=== PATIENT | female | born 1990 | race African-American/Black ===

== ENCOUNTER 2016-12-03 14:19 | Emergency (ER) | payer SELFPAY ==
[2016-12-03 15:03] VITALS: BP 132/68
--- NOTE | 2016-12-03 15:08 | ER Document Report ---
ED Medical Screen (RME) - General Stated Complaint: FALL HEAD PAIN Notes: 26 yo female c/o syncopal episode in shower today. hit head on water faucet. + headache. no n/v. no scalp hematoma. + hx/o crohn's. no recent flares. eating and drinking normally. + previous syncopal episodes TRAVEL OUTSIDE OF THE [place] IN LAST 30 DAYS: No - Related Data Allergies/Adverse Reactions: morphine [Morphine] Allergy (Mild, Verified 12/03/16 15:05) Hives Past Medical History Renal/ Medical History: Reports: Hx Ovarian Cysts GI Medical History: Reports: Hx Crohn's Disease, Hx Colonoscopy, Hx Endoscopy Past Surgical History: Reports: Hx Abdominal Surgery - Peritoneal abscess and fistula removed JACKIE chain inserted and removed, Hx Gynecologic Surgery - pelvic abscesses x2 - Immunizations Hx Diphtheria, Pertussis, Tetanus Vaccination: No Physical Exam - Vital signs Vitals: Temp Pulse Resp BP Pulse Ox 97.7 F 91 18 132/68 H 99 12/03/16 15:01 12/03/16 15:01 12/03/16 15:01 12/03/16 15:01 12/03/16 15:01 Course - Vital Signs Vital signs: Temp Pulse Resp BP Pulse Ox 97.7 F 91 18 132/68 H 99 12/03/16 15:01 12/03/16 15:01 12/03/16 15:01 12/03/16 15:01 12/03/16 15:01
[2016-12-03 15:45] LABS: ABSOLUTE LYMPHOCYTES (AUTO) 1.3 10^3/uL (0.5-4.7); ABSOLUTE MONOCYTES (AUTO) 0.4 10^3/uL (0.1-1.4); ABSOLUTE NEUT (AUTO) 3.7 10^3/uL (1.7-8.2); BASOPHILS % (AUTO) 0.1 % (0-2); EOSINOPHILS % (AUTO) 0.7 % (0-6); HEMATOCRIT 29.6 % (36.0-47.0); HEMOGLOBIN 9.2 g/dL (12.0-15.5); LYMPHOCYTES % (AUTO) 24.3 % (13-45); MEAN CORPUSCULAR HEMOGLOBIN 18.5 pg (27.0-33.4); MEAN CORPUSCULAR VOLUME 60 fl (80-97); MONOCYTES % (AUTO) 7.1 % (3-13); RED BLOOD COUNT 4.96 10^6/uL (3.72-5.28); RED CELL DISTRIBUTION WIDTH 19.8 % (11.5-14.0); SEGMENTED NEUTROPHILS % (AUTO) 67.8 % (42-78); WHITE BLOOD COUNT 5.5 10^3/uL (4.0-10.5)
[2016-12-03 16:02] LABS: ALANINE AMINOTRANSFERASE 23 U/L (9-52); ALBUMIN 3.7 g/dL (3.5-5.0); ALKALINE PHOSPHATASE 73 U/L (38-126); ANION GAP 14 (5-19); ASPARTATE AMINO TRANSFERASE 13 U/L (14-36); BILIRUBIN,TOTAL 0.5 mg/dL (0.2-1.3); BLOOD UREA NITROGEN 9 mg/dL (7-20); CALCIUM 9.4 mg/dL (8.4-10.2); CARBON DIOXIDE 24 mmol/L (22-30); CHLORIDE 106 mmol/L (98-107); CREATININE RESULT 0.69 mg/dL (0.52-1.25); GLUCOSE 75 mg/dL (75-110); POTASSIUM 4.6 mmol/L (3.6-5.0); SODIUM 143.6 mmol/L (137-145); TOTAL PROTEIN 7.8 g/dL (6.3-8.2)
[2016-12-03 16:13] LABS: ANISOCYTOSIS 2+; HYPOCHROMASIA 1+; MICROCYTOSIS 3+
[2016-12-03 16:14] LABS: OVALOCYTES SLIGHT; POIKILOCYTOSIS 1+; SCHISTOCYTES SLIGHT; TARGET CELLS SLIGHT; TEAR DROP CELLS SLIGHT
== END 2016-12-03 17:15 | disposition left against medical advice (07) ==
LOC: ER 14:19
DX: R51 Headache (principal); W18.2XXA Fall in (into) shower or empty bathtub, initial encounter; R55 Syncope and collapse; Z88.5 Allergy status to narcotic agent
CPT/HCPCS: 36415; 80053; 84703; 85025; 99281

== ENCOUNTER → 2017-06-05 | Outpatient (CLI) | payer BC ==
--- NOTE | 2017-06-05 11:54 | RADIOLOGY REPORT (SQ) ---
EXAM DESCRIPTION: CT ABD/PELVIS WITH IV ORAL COMPLETED DATE/TIME: 06/05/2017 10:27 am REASON FOR STUDY: CROHN'S DISEASE K50.919 CROHN'S DISEASE, UNSPECIFIED, WITH UNSPECIFIED COMPL COMPARISON: 03/01/2015 TECHNIQUE: CT scan of the abdomen and pelvis performed using helical scanning technique with dynamic intravenous contrast injection. Oral contrast. Images reviewed with lung, soft tissue, and bone win dows. Reconstructed coronal and sagittal MPR images reviewed. Delayed images for evaluation of the ur inary system also acquired. All images stored on PACS. All CT scanners at this facility use dose modulation, iterative reconstruction, and/or weight based d osing when appropriate to reduce radiation dose to as low as reasonably achievable (ALARA). [facility]: Dose Right [facility]: CareDose [facility]: Dose Right [facility]: Teradose 4D [facility]: [employer] CONTRAST TYPE AND DOSE: contrast/concentration: Isovue 370.00 mg/ml; Total Contrast Delivered: 97.0 ml; Total Saline Delivered: 43.6 ml RENAL FUNCTION: None required. The patient is less than 50 years old. RADIATION DOSE: Up-to-date CT equipment and radiation dose reduction techniques were employed. CTDIv ol: 13.8 - 14.0 mGy. DLP: 1522 mGy-cm.. LIMITATIONS: None. FINDINGS: LOWER CHEST: No significant findings. No nodules or infiltrates. LIVER: Normal size. No masses. No dilated ducts. SPLEEN: Normal size. No focal lesions. PANCREAS: No masses. No significant calcifications. No adjacent inflammation or peripancreatic fluid collections. Pancreatic duct not dilated. GALLBLADDER: A single gallstone is seen. This is seen on image 29 series 2 and image 31 series 5. ADRENAL GLANDS: No significant masses or asymmetry. RIGHT KIDNEY AND URETER: No solid masses. No significant calcifications. No hydronephrosis or hyd roureter. LEFT KIDNEY AND URETER: No solid masses. No significant calcifications. No hydronephrosis or hydr oureter. AORTA AND VESSELS: No aneurysm. No dissection. Renal arteries, SMA, celiac without stenosis. RETROPERITONEUM: No retroperitoneal adenopathy, hemorrhage or masses. BOWEL AND PERITONEAL CAVITY: Multiple small mesenteric lymph nodes are present. A large amount of st ool is present in the colon. No mass is present in the colon or small bowel. There is no abnormal b owel wall thickening. APPENDIX: Not identified. PELVIS: The urinary bladder is incompletely filled but otherwise unremarkable. The uterus is normal for age. There is a 4 cm right adnexal cyst. ABDOMINAL WALL: No masses. No hernias. BONES: No significant or acute findings. OTHER: No other significant finding. IMPRESSION: 1. Cholelithiasis. 2. There are multiple small mesenteric nodes possibly suggesting mesenteric adenitis. 3. There is a 4 cm right adnexal cyst. TECHNICAL DOCUMENTATION: JOB ID: [id number] Quality ID # [id number]: Final reports with documentation of one or more dose reduction techniques (e.g., Au tomated exposure control, adjustment of the mA and/or kV according to patient size, use of iterative reconstruction technique) 2010 [employer]- All Rights Reserved
== END ==
LOC: RAD 09:33
PROVIDERS: ATTEND Surgery
DX: K50.919 Crohn's disease, unspecified, with unspecified complications (principal)
CPT/HCPCS: 74177

== ENCOUNTER 2018-04-24 14:06 | Inpatient (IN) | payer SELFPAY ==
[2018-04-24] MEDS ORDERED: ACETAMINOPHEN 325 MG TABLET PO ONE (14:27)
[2018-04-24] MEDS ORDERED: NORMAL SALINE 1000 ML 1,000 ML IV ONE ×2 (14:54→17:12)
--- NOTE | 2018-04-24 14:56 | ER Document Report ---
ED Medical Screen (RME) - General Chief Complaint: Abdominal Pain Stated Complaint: ABDOMINAL PAIN Time Seen by Provider: 04/24/18 14:52 Notes: 27-year-old female history of Crohn's. History of pilonidal cyst. States he has a draining open abscess in the region where she had a pilonidal cyst in the past. On immunosuppressive therapy. Fever today of 102. Feels horrible. Hurts all over. Heart racing. I have greeted and performed a rapid initial assessment of this patient. A comprehensive ED assessment and evaluation of the patient, analysis of test results and completion of the medical decision making process will be conducted by additional ED providers. TRAVEL OUTSIDE OF THE [place] IN LAST 30 DAYS: No - Related Data Allergies/Adverse Reactions: morphine [Morphine] Allergy (Mild, Verified 12/03/16 15:05) Hives Past Medical History - General Information source: Patient Renal/ Medical History: Reports: Hx Ovarian Cysts. Denies: Hx Peritoneal Dialysis GI Medical History: Reports: Hx Crohn's Disease, Hx Colonoscopy, Hx Endoscopy Past Surgical History: Reports: Hx Abdominal Surgery - Peritoneal abscess and fistula removed JACKIE chain inserted and removed, Hx Gynecologic Surgery - pelvic abscesses x2 - Immunizations Hx Diphtheria, Pertussis, Tetanus Vaccination: No Review of Systems - Review of Systems Constitutional: Fever. denies: Malaise, Weakness EENT: No symptoms reported Cardiovascular: Palpitations, Heart racing Respiratory: No symptoms reported Gastrointestinal: Abdominal pain, Other - Clinical cyst, Female Genitourinary: No symptoms reported Musculoskeletal: No symptoms reported Skin: See HPI, Other - Pilonidal cyst Hematologic/Lymphatic: No symptoms reported Physical Exam - Vital signs Vitals: Temp Pulse Resp BP Pulse Ox 102.5 F H 132 H 16 127/65 H 100 04/24/18 14:24 04/24/18 14:24 04/24/18 14:24 04/24/18 14:24 04/24/18 14:24 Interpretation: Tachycardic, Febrile - Notes Notes: Uncomfortable appearing Course - Vital Signs Vital signs: Temp Pulse Resp BP Pulse Ox 102.5 F H 132 H 16 127/65 H 100 04/24/18 14:24 04/24/18 14:24 04/24/18 14:24 04/24/18 14:24 04/24/18 14:24 Doctor's Discharge - Discharge Referrals: JESSICA PILLAI MD [Primary Care Provider] - Follow up as needed
[2018-04-24] MEDS ORDERED: FENTANYL CITRATE INJ/PF 100 MCG/2 ML AMPUL IV ONE ×2 (16:40→18:06)
[2018-04-24 17:10] LABS: INTERNATIONAL RATION (INR) 1.24; PROTHROMBIN TIME 16.2 SEC (11.4-15.4)
--- NOTE | 2018-04-24 17:18 | ER Document Report ---
ED General - General Chief Complaint: Abdominal Pain Stated Complaint: ABDOMINAL PAIN Time Seen by Provider: 04/24/18 14:52 Mode of Arrival: Ambulatory Information source: Patient Notes: Patient presents complaining of fever that started yesterday with nausea and a chronic buttock abscess that is been draining. Patient has a history of Crohn' s and history of multiple pelvic abscesses as well as peritoneal abscess with fistula. Mother states that patient's abscess has intermittently been draining off and on for years. Patient does complain of nausea but denies any vomiting. Patient denies any abdominal tenderness. Patient does take stelara to treat her Crohn's. TRAVEL OUTSIDE OF THE [place] IN LAST 30 DAYS: No - HPI Onset: Yesterday Onset/Duration: Gradual Quality of pain: Sharp Pain Level: 5 Associated symptoms: Chills, Fever, Nausea. denies: Chest pain, Nonproductive cough, Productive cough, Diarrhea, Vomiting Exacerbated by: Sitting, Movement Relieved by: Denies Similar symptoms previously: Yes Recently seen / treated by doctor: No - Related Data Allergies/Adverse Reactions: morphine [Morphine] Allergy (Mild, Verified 12/03/16 15:05) Hives pineapple Adverse Reaction (Verified 04/24/18 23:20) Past Medical History - General Information source: Patient - Social History Smoking Status: Never Smoker Chew tobacco use (# tins/day): No Frequency of alcohol use: None Drug Abuse: None Lives with: Family Family History: Arthritis, CAD, DM, Hyperlipidemia, Hypertension, Thyroid Disfunction Patient has suicidal ideation: No Patient has homicidal ideation: No Renal/ Medical History: Reports: Hx Ovarian Cysts. Denies: Hx Peritoneal Dialysis GI Medical History: Reports: Hx Crohn's Disease, Hx Colonoscopy, Hx Endoscopy Past Surgical History: Reports: Hx Abdominal Surgery - Peritoneal abscess and fistula removed JACKIE chain inserted and removed, Hx Gynecologic Surgery - pelvic abscesses x2 - Immunizations Hx Diphtheria, Pertussis, Tetanus Vaccination: No Review of Systems - Review of Systems Constitutional: Chills, Fever EENT: No symptoms reported Cardiovascular: No symptoms reported. denies: Chest pain Respiratory: No symptoms reported. denies: Cough, Short of breath Gastrointestinal: Diarrhea - Chronic, Nausea. denies: Abdominal pain, Vomiting Genitourinary: No symptoms reported. denies: Dysuria, Flank pain Female Genitourinary: No symptoms reported Musculoskeletal: No symptoms reported. denies: Back pain Skin: Other - Chronic draining abscess to left buttock Hematologic/Lymphatic: No symptoms reported Neurological/Psychological: No symptoms reported Physical Exam - Vital signs Vitals: Temp Pulse Resp BP Pulse Ox 102.5 F H 132 H 16 127/65 H 100 04/24/18 14:24 04/24/18 14:24 04/24/18 14:24 04/24/18 14:24 04/24/18 14:24 - General General appearance: Alert In distress: Mild - HEENT Head: Normocephalic Eyes: Normal Conjunctiva: Normal Ears: Normal External canal: Normal Nasal: Normal Mouth/Lips: Normal Mucous membranes: Dry Pharynx: Erythema. No: Exudate, Peritonsillar abscess, Tonsillar hypertrophy, Potential airway comprom. Neck: Normal, Supple. No: Lymphadenopathy - Respiratory Respiratory status: No respiratory distress Chest status: Nontender Breath sounds: Normal. No: Rales, Rhonchi, Stridor, Wheezing Chest palpation: Normal - Cardiovascular Rhythm: Tachycardia Heart sounds: S1 appreciated, S2 appreciated Murmur: No - Abdominal Inspection: Obese Distension: No distension Bowel sounds: Normal Tenderness: Nontender Organomegaly: No organomegaly - Back Back: Normal, Nontender. No: CVA tenderness - Extremities General upper extremity: Normal inspection, Normal strength General lower extremity: Normal inspection, Normal strength - Neurological Neuro grossly intact: Yes Ann Coma Scale Eye Opening: Spontaneous Ann Coma Scale Verbal: Oriented Ann Coma Scale Motor: Obeys Commands Ann Coma Scale Total: 15 - Psychological Associated symptoms: Normal affect, Normal mood - Skin Skin Temperature: Warm Skin Moisture: Dry Skin Color: Flushed Skin irregularity: Abscess - Draining abscess to left buttock, no surrounding erythema. Tenderness does extend to left perirectal area Course - Re-evaluation Re-evalutation: 04/24/18 17:[address] Lacey who agrees to evaluate patient 04/24/18 17:51 Dr Lacey evaluated patient, does not feel that patient has a surgical problem at this time. Recommends CT imaging and admission to hospitalist services. Call placed jig operator to contact patient's primary doctor, Dr. Biggs. 04/24/18 18:05 04/24/18 19:[address] Turpin regarding patient presentation. Recommends obtaining CT scan report first and then calling him with results. States that he will admit patient, but prefers to be called back once the scan report has resulted. 04/24/18 19:38 Bedside report and handout given to Debra Latham CONTRACTING ANALYST - Vital Signs Vital signs: Temp Pulse Resp BP Pulse Ox 98.6 F 110 H 18 108/50 L 100 04/25/18 07:59 04/25/18 07:59 04/25/18 07:59 04/25/18 07:59 04/25/18 07:59 - Laboratory Result Diagrams: 04/25/18 04:56 04/25/18 04:56 Laboratory results interpreted by me: 04/24/18 04/24/18 04/24/18 16:40 16:40 16:40 WBC Hgb MCV MCH RDW Plt Count Seg Neuts % (Manual) Lymphocytes % (Manual) Abs Neuts (Manual) PT 16.2 H VBG pCO2 VBG HCO3 Potassium 3.5 L Carbon Dioxide 21 L Total Bilirubin 1.4 H Direct Bilirubin 0.7 H Urine Urobilinogen 2.0 H Ur Leukocyte Esterase TRACE H 04/24/18 04/24/18 18:24 20:00 WBC 13.2 H Hgb 11.7 L MCV 74 L MCH 24.0 L RDW 16.6 H Plt Count 133 L Seg Neuts % (Manual) 88 H Lymphocytes % (Manual) 5 L Abs Neuts (Manual) 12.1 H PT VBG pCO2 28.6 L VBG HCO3 18.1 L Potassium Carbon Dioxide Total Bilirubin Direct Bilirubin Urine Urobilinogen Ur Leukocyte Esterase Discharge - Discharge Clinical Impression: Left buttock abscess Fever Qualifiers: Fever type: unspecified Qualified Code(s): R50.9 - Fever, unspecified Crohns disease Qualifiers: Gastrointestinal tract location: unspecified location Digestive disease complication type: unspecified complication Qualified Code(s): K50.919 - Crohn' s disease, unspecified, with unspecified complications
[2018-04-24] MEDS ORDERED: AMPICILLIN SOD/SULBACTAM 3 GM VIAL IV ONE (17:28)
[2018-04-24 17:38] LABS: APPEARANCE,URINE TURBID; BILIRUBIN,URINE NEGATIVE (NEGATIVE); COLOR,URINE YELLOW; GLUCOSE, URINE NEGATIVE (NEGATIVE); KETONES,URINE NEGATIVE (NEGATIVE); LEUKOCYTE ESTERASE,URINE TRACE (NEGATIVE); NITRITE,URINE NEGATIVE (NEGATIVE); PROTEIN,URINE NEGATIVE (NEGATIVE); URINE SPECIFIC GRAVITY 1.023
[2018-04-24 17:46] LABS: ALANINE AMINOTRANSFERASE 20 U/L (9-52); ALBUMIN 3.5 g/dL (3.5-5.0); ALKALINE PHOSPHATASE 91 U/L (38-126); ANION GAP 11 (5-19); ASPARTATE AMINO TRANSFERASE 24 U/L (14-36); BILIRUBIN,DIRECT 0.7 mg/dL (0.0-0.4); BILIRUBIN,TOTAL 1.4 mg/dL (0.2-1.3); BLOOD UREA NITROGEN 11 mg/dL (7-20); CALCIUM 8.9 mg/dL (8.4-10.2); CARBON DIOXIDE 21 mmol/L (22-30); CHLORIDE 105 mmol/L (98-107); GLUCOSE 102 mg/dL (75-110); POTASSIUM 3.5 mmol/L (3.6-5.0); TOTAL PROTEIN 7.3 g/dL (6.3-8.2)
[2018-04-24] MEDS ORDERED: KETOROLAC TROMETHAMINE INJ/PF 30 MG/1 ML SDV IV ONE (18:23)
[2018-04-24 18:48] LABS: HEMOGLOBIN 11.7 g/dL (12.0-15.5); MEAN CORPUSCULAR HGB CONC 32.6 g/dL (32.0-36.0); MEAN CORPUSCULAR VOLUME 74 fl (80-97); PLATELET COUNT 133 10^3/uL (150-450); RED BLOOD COUNT 4.89 10^6/uL (3.72-5.28); RED CELL DISTRIBUTION WIDTH 16.6 % (11.5-14.0); WHITE BLOOD COUNT 13.2 10^3/uL (4.0-10.5)
[2018-04-24 19:16] LABS: ABSOLUTE LYMPHOCYTES# (MANUAL) 0.7 10^3/uL (0.5-4.7); ABSOLUTE MONOCYTES # (MANUAL) 0.4 10^3/uL (0.1-1.4); ABSOLUTE NEUTROPHILS# (MANUAL) 12.1 10^3/uL (1.7-8.2); BAND NEUTROPHILS % (MANUAL) 4 % (3-5); BASOPHILS % (MANUAL) 0 % (0-2); EOSINOPHILS % (MANUAL) 0 % (0-6); LYMPHOCYTES % (MANUAL) 5 % (13-45); MONOCYTES % (MANUAL) 3 % (3-13); SEGMENTED NEUTROPHILS % (MAN) 88 % (42-78); TOTAL CELLS COUNTED 100
[2018-04-24 19:17] LABS: PLATELET COMMENT DECREASED; RBC MORPHOLOGY COMMENT NORMO-CYTIC/CHROMIC
--- NOTE | 2018-04-24 20:19 | PDOC CONSULTATION ---
Consultation Consult Date: 04/24/18 Attending physician:: hilda Consult reason:: Left buttock abscess History of Present Illness Admission Date/PCP: JESSICA PILLAI MD Patient complains of: Left buttock abscess History of Present Illness: SRAVANTHI MENDEZ is a 27 year old female Presents emergency department with her mother complaining of left buttock abscess. Patient and mother are suboptimal historians. Apparently patient belongs to Dr. Biggs, has a long history of Crohn's disease since age of 14, and sees doll maker at [facility]. She was last seen a month and half ago. She is also seen Dr. Henriquez. She has had multiple colonoscopies in the past., Is scheduled to have another one in the very near at [facility]. 5 years ago she underwent left buttock abscess felt possibly to be fistula inano by Dr. Omar Moraes but this did not require additional surgery. According to the patient she states she has been having drainage ever since. There are no medical records for intervention on her buttocks since 2012. For several days she has had increased drainage from her left buttock cheek away from the initial operative side in 2012. She denies constipation abdominal pain nausea and vomiting. Patient has been on immunomodulators for some time; she is now on steroids. She is not on pain medication. She has had some skin issues particularly involving her abdominal wall since diagnosed with Crohn's disease. She is now in the emergency department with tachycardia and hypertension. There is left buttock drainage. She has a moderate leukocytosis. Surgery was consulted. Past Medical History GI Medical History: Reports: Crohn's Disease Social History Lives with: Family Smoking Status: Never Smoker Family History Family History: None - Remote history of Crohn's disease in a distant family member, Arthritis, CAD, DM, Hyperlipidemia, Hypertension, Thyroid Disfunction Parental Family History Reviewed: Yes Children Family History Reviewed: Yes Sibling(s) Family History Reviewed.: Yes Medication/Allergy Home Medications: Hydrocodone/Acetaminophen [Hydrocodone-Apap Solution] 7.5 ml PO Q6 PRN #120 ml 05/28/16 Prednisolone [Prelone 15mg/5ml] See Protocol PO ASDIR #55 ml 08/30/16 Allergies/Adverse Reactions: morphine [Morphine] Allergy (Mild, Verified 12/03/16 15:05) Hives Review of Systems Constitutional: PRESENT: as per HPI Eyes: ABSENT: visual disturbances Ears: ABSENT: hearing changes Cardiovascular: ABSENT: chest pain, dyspnea on exertion, edema, orthropnea, palpitations Gastrointestinal: PRESENT: as per HPI Physical Exam Vital Signs: Temp Pulse Resp BP Pulse Ox 101.2 F H 132 H 23 H 116/102 H 99 04/24/18 18:34 04/24/18 14:24 04/24/18 19:00 04/24/18 18:48 04/24/18 19:00 Intake & Output 04/23/18 04/24/18 04/25/18 06:59 06:59 06:59 Weight 118.4 kg General appearance: PRESENT: mild distress, other - Difficult to communicate with, multiple; most of the history provided by Head exam: PRESENT: normocephalic Eye exam: PRESENT: EOMI Neck exam: PRESENT: full ROM Respiratory exam: PRESENT: clear to auscultation da Cardiovascular exam: PRESENT: RRR Pulses: PRESENT: normal carotid pulses, normal radial pulses GI/Abdominal exam: PRESENT: other - Abdominal wall with scar; skin overlying the panniculus somewhat erythematous, very dry. Rectal exam: PRESENT: other - Fissure with heaped up granulation tissue, very tender. I did not formally digitalize the anal canal. There is a lot of stool in the perianal region Right buttock approximately 10 cm away from the anal verge is spontaneously draining abscess. Neurological exam: PRESENT: other Psychiatric exam: PRESENT: other - Difficult to understand. Results Laboratory Results: 04/24/18 18:24 04/24/18 16:40 04/24/18 04/24/18 04/24/18 16:40 16:40 18:24 WBC 13.2 H RBC 4.89 Hgb 11.7 L Hct 36.0 MCV 74 L MCH 24.0 L MCHC 32.6 RDW 16.6 H Plt Count 133 L Seg Neutrophils % Not Reportable Lymphocytes % Not Reportable Monocytes % Not Reportable Eosinophils % Not Reportable Basophils % Not Reportable Absolute Neutrophils Not Reportable Absolute Lymphocytes Not Reportable Absolute Monocytes Not Reportable Absolute Eosinophils Not Reportable Absolute Basophils Not Reportable Sodium 137.0 Potassium 3.5 L Chloride 105 Carbon Dioxide 21 L Anion Gap 11 BUN 11 Creatinine 0.87 Est GFR ( Amer) > 60 Est GFR (Non-Af Amer) > 60 Glucose 102 Calcium 8.9 Total Bilirubin 1.4 H AST 24 ALT 20 Alkaline Phosphatase 91 Total Protein 7.3 Albumin 3.5 Urine Color YELLOW Urine Appearance TURBID Urine pH 5.0 Ur Specific [place] 1.023 Urine Protein NEGATIVE Urine Glucose (UA) NEGATIVE Urine Ketones NEGATIVE Urine Blood NEGATIVE Urine Nitrite NEGATIVE Ur Leukocyte Esterase TRACE H Urine WBC (Auto) 5 Urine RBC (Auto) 1 Assessment & Plan - Diagnosis (1) Left buttock abscess Is this a current diagnosis for this admission?: Yes Plan: Impression: The patient has a subacute left buttock abscess. Does not appear very impressive on exam; although my assessment is limited due to patient's low pain threshold. 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 Again this is a chronic problem. Rectal exam not performed due to patient's intolerance to discomfort. Recommendations: 1. Patient's septic picture appears to be out of proportion to physical findings with regards to the left buttock, however the buttock abscess may need to be opened further. I have suggested we obtain a CT scan of the abdomen pelvis with IV and oral contrast to further define any further pathology. 2. Surgery will serve in a reimbursement consultant capacity; suggested to the emergency department the patient be admitted to the hospitalist service. (2) Anal fissure Is this a current diagnosis for this admission?: Yes (3) Obesity Qualifiers: Obesity type: due to excess calories (4) Crohns disease Qualifiers: Gastrointestinal tract location: unspecified location Digestive disease complication type: unspecified complication Qualified Code(s): K50.919 - Crohn 's disease, unspecified, with unspecified complications Is this a current diagnosis for this admission?: Yes (5) Fever Qualifiers: Fever type: unspecified Qualified Code(s): R50.9 - Fever, unspecified Is this a current diagnosis for this admission?: Yes - Time Time Spent: 30 to 50 Minutes Smoking Cessation Education: over 10 minutes Medications reviewed and adjusted accordingly: Yes Anticipated discharge: Home - Inpatient Certification Based on my medical assessment, after consideration of the patient's comorbidities, presenting symptoms, or acuity I expect that the services needed warrant INPATIENT care.: Yes I certify that my determination is in accordance with my understanding of Medicare's requirements for reasonable and necessary INPATIENT services [42 CFR 412.3e].: Yes Medical Necessity: Need For IV Fluids, Need for Pain Control, Need for IV Antibiotics, Need for Surgery
[2018-04-24 20:25] LABS: VENOUS BLOOD HCO3 18.1 mmol/L (20-32); VENOUS BLOOD PCO2 28.6 mmHg (35-63); VENOUS BLOOD PH 7.42 (7.30-7.42)
[2018-04-24] MEDS ORDERED: PROMETHAZINE HCL 25 MG TABLET PO PRN (21:00)
[2018-04-24] MEDS ORDERED: ZOLPIDEM TARTRATE 5 MG TABLET PO PRN (21:00)
[2018-04-24] MEDS ORDERED: ACETAMINOPHEN 325 MG TABLET PO PRN (21:00)
[2018-04-24] MEDS ORDERED: ONDANSETRON HCL INJ/PF 4 MG/2 ML SDV IV PRN (21:00)
[2018-04-24] MEDS ORDERED: METRONIDAZOLE 500 MG/NS RTU 100 ML IV ONE (21:15)
--- NOTE | 2018-04-24 21:18 | PDOC H&P ---
History of Present Illness Admission Date/PCP: JESSICA PILLAI MD History of Present Illness: SRAVANTHI MENDEZ is a 27 year old unfortunate black female patient who has been suffering from Crohn's disease since age 14 presented with chief complaint of fever and left buttock abscess. Patient has had this similar symptoms in the past for which admitted to this hospital where she had incision and drainage and extensive debridement. This afternoon patient also seen and evaluated by Dr. Singh who will see her at a review consultant capacity and deferred admission to the hospitalist service. Patient has associated abdominal pain but she denied any nausea vomiting, or urinary complaints. At presentation patient has T-max of 101.2, tachycardia and mild leukocytosis of 13,000. Past Medical History GI Medical History: Reports: Crohn's Disease Past Surgical History Past Surgical History: Reports: Other - Abscess drainage and debridement Social History Lives with: Family Smoking Status: Never Smoker - Advance Directive Resuscitation Status: Full Code Family History Family History: None - Remote history of Crohn's disease in a distant family member, Arthritis, CAD, DM, Hyperlipidemia, Hypertension, Thyroid Disfunction Parental Family History Reviewed: Yes Children Family History Reviewed: Yes Sibling(s) Family History Reviewed.: Yes Medication/Allergy Home Medications: Hydrocodone/Acetaminophen [Hydrocodone-Apap Solution] 7.5 ml PO Q6 PRN #120 ml 05/28/16 Prednisolone [Prelone 15mg/5ml] See Protocol PO ASDIR #55 ml 08/30/16 Allergies/Adverse Reactions: morphine [Morphine] Allergy (Mild, Verified 12/03/16 15:05) Hives Review of Systems Constitutional: PRESENT: as per HPI Ears: PRESENT: as per HPI Cardiovascular: PRESENT: as per HPI Respiratory: PRESENT: as per HPI Gastrointestinal: PRESENT: as per HPI Neurological: PRESENT: as per HPI Physical Exam Vital Signs: Temp Pulse Resp BP Pulse Ox 101.2 F H 132 H 23 H 116/102 H 99 04/24/18 18:34 04/24/18 14:24 04/24/18 19:00 04/24/18 18:48 04/24/18 19:00 Intake & Output 04/23/18 04/24/18 04/25/18 06:59 06:59 06:59 Weight 118.4 kg General appearance: PRESENT: mild distress Head exam: PRESENT: atraumatic, normocephalic Neck exam: ABSENT: carotid bruit, JVD, lymphadenopathy, thyromegaly Respiratory exam: PRESENT: clear to auscultation da. ABSENT: rales, rhonchi, wheezes Cardiovascular exam: PRESENT: tachycardia GI/Abdominal exam: PRESENT: normal bowel sounds, soft. ABSENT: distended, guarding, mass, organolmegaly, rebound, tenderness Extremities exam: PRESENT: other - Left buttock abscess Results Laboratory Results: 04/24/18 18:24 04/24/18 16:40 04/24/18 04/24/18 04/24/18 16:40 16:40 18:24 WBC 13.2 H RBC 4.89 Hgb 11.7 L Hct 36.0 MCV 74 L MCH 24.0 L MCHC 32.6 RDW 16.6 H Plt Count 133 L Seg Neutrophils % Not Reportable Lymphocytes % Not Reportable Monocytes % Not Reportable Eosinophils % Not Reportable Basophils % Not Reportable Absolute Neutrophils Not Reportable Absolute Lymphocytes Not Reportable Absolute Monocytes Not Reportable Absolute Eosinophils Not Reportable Absolute Basophils Not Reportable VBG pH VBG pCO2 VBG HCO3 VBG Base Excess Sodium 137.0 Potassium 3.5 L Chloride 105 Carbon Dioxide 21 L Anion Gap 11 BUN 11 Creatinine 0.87 Est GFR ( Amer) > 60 Est GFR (Non-Af Amer) > 60 Glucose 102 Lactic Acid Calcium 8.9 Total Bilirubin 1.4 H AST 24 ALT 20 Alkaline Phosphatase 91 Total Protein 7.3 Albumin 3.5 Urine Color YELLOW Urine Appearance TURBID Urine pH 5.0 Ur Specific [place] 1.023 Urine Protein NEGATIVE Urine Glucose (UA) NEGATIVE Urine Ketones NEGATIVE Urine Blood NEGATIVE Urine Nitrite NEGATIVE Ur Leukocyte Esterase TRACE H Urine WBC (Auto) 5 Urine RBC (Auto) 1 04/24/18 04/24/18 20:00 20:00 WBC RBC Hgb Hct MCV MCH MCHC RDW Plt Count Seg Neutrophils % Lymphocytes % Monocytes % Eosinophils % Basophils % Absolute Neutrophils Absolute Lymphocytes Absolute Monocytes Absolute Eosinophils Absolute Basophils VBG pH 7.42 VBG pCO2 28.6 L VBG HCO3 18.1 L VBG Base Excess -5.0 Sodium Potassium Chloride Carbon Dioxide Anion Gap BUN Creatinine Est GFR ( Amer) Est GFR (Non-Af Amer) Glucose Lactic Acid 1.3 Calcium Total Bilirubin AST ALT Alkaline Phosphatase Total Protein Albumin Urine Color Urine Appearance Urine pH Ur Specific [place] Urine Protein Urine Glucose (UA) Urine Ketones Urine Blood Urine Nitrite Ur Leukocyte Esterase Urine WBC (Auto) Urine RBC (Auto) Assessment & Plan - Diagnosis (1) Sepsis Qualifiers: Sepsis type: sepsis due to unspecified organism Qualified Code(s): A41.9 - Sepsis, unspecified organism Is this a current diagnosis for this admission?: Yes Plan: Patient has been empirically started on Flagyl, Levaquin. We will adjust her antibiotics based on her clinical response and culture results. (2) Crohns disease Qualifiers: Gastrointestinal tract location: unspecified location Digestive disease complication type: unspecified complication Qualified Code(s): K50.919 - Crohn 's disease, unspecified, with unspecified complications Is this a current diagnosis for this admission?: Yes Plan: Per her primary insurance administrative assistant. (3) Left buttock abscess Is this a current diagnosis for this admission?: Yes Plan: Dr. Singh consulted for further evaluation and management. - Inpatient Certification Medical Necessity: Need Close Monitoring Due to Risk of Patient Decompensation, Need for IV Antibiotics
[2018-04-24] MEDS: METHYLPREDNISOLONE INJ 40 MG/1 ML SDV IV SCH (21:59)
[2018-04-24] MEDS ORDERED: LEVOFLOXACIN 750 MG/D5W RTU 750 MG/150 ML RTUPB IV ONE (22:00)
--- NOTE | 2018-04-24 22:17 | RADIOLOGY REPORT (SQ) ---
EXAM DESCRIPTION: CT ABD/PELVIS WITH IV ORAL COMPLETED DATE/TIME: 04/24/2018 9:31 pm REASON FOR STUDY: fever, buttock abscess, hx crohns COMPARISON: 06/05/2017 TECHNIQUE: CT scan of the abdomen and pelvis performed using helical scanning technique with dynamic intravenous contrast injection. No oral contrast. Images reviewed with lung, soft tissue, and bone windows. Reconstructed coronal and sagittal MPR images reviewed. Delayed images for evaluation of the urinary system also acquired. All images stored on PACS. All CT scanners at this facility use dose modulation, iterative reconstruction, and/or weight based d osing when appropriate to reduce radiation dose to as low as reasonably achievable (ALARA). [facility]: Dose Right [facility]: CareDose [facility]: Dose Right [facility]: Teradose 4D [facility]: LearnZillion CONTRAST TYPE AND DOSE: contrast/concentration: Isovue 370.00 mg/ml; Total Contrast Delivered: 100.0 ml; Total Saline Delivered: 70.0 ml RENAL FUNCTION: BUN 11; creatinine 0.87 RADIATION DOSE: CT Rad equipment meets quality standard of care and radiation dose reduction techniq ues were employed. CTDIvol: 19.5 - 20.5 mGy. DLP: 2444 mGy-cm.. LIMITATIONS: None. FINDINGS: LOWER CHEST: No significant findings. No nodules or infiltrates. LIVER: Normal size. No masses. No dilated ducts. SPLEEN: Normal size. No focal lesions. PANCREAS: No masses. No significant calcifications. No adjacent inflammation or peripancreatic fluid collections. Pancreatic duct not dilated. GALLBLADDER: Gallstones. No inflammatory changes to suggest cholecystitis. ADRENAL GLANDS: No significant masses or asymmetry. RIGHT KIDNEY AND URETER: No solid masses. No significant calcifications. No hydronephrosis or hyd roureter. LEFT KIDNEY AND URETER: No solid masses. No significant calcifications. No hydronephrosis or hydr oureter. AORTA AND VESSELS: No aneurysm. No dissection. Renal arteries, SMA, celiac without stenosis. RETROPERITONEUM: No retroperitoneal adenopathy, hemorrhage or masses. BOWEL AND PERITONEAL CAVITY: Scattered small mesenteric lymph nodes similar to that seen on compariso n imaging. Prominent stool burden. No mass or inflammatory changes. APPENDIX: Not visualized. PELVIS: No mass. No free fluid. Normal bladder. ABDOMINAL WALL: No masses. No hernias. BONES: No significant or acute findings. OTHER: A serpiginous hypoattenuating fluid collection extends from the level of the coccyx, along the left perirectal fat and extra pelvic soft tissues, consistent with abscess. This may have fistulize d to the left gluteal skin. IMPRESSION: 1. Serpiginous left perirectal abscess extending from the level of the coccyx, along th e left perirectal fat to the left gluteal skin. 2. Cholelithiasis without evidence of cholecystitis. 3. Re- demonstration of scattered small mesenteric lymph nodes. TECHNICAL DOCUMENTATION: JOB ID: [id number] Quality ID # [id number]: Final reports with documentation of one or more dose reduction techniques (e.g., Au tomated exposure control, adjustment of the mA and/or kV according to patient size, use of iterative reconstruction technique) 2010 [email or web address]- All Rights Reserved Reading location - IP/workstation name: [email or web address]
--- NOTE | 2018-04-25 00:14 | EKG REPORT ---
SEVERITY:- BORDERLINE ECG - SINUS TACHYCARDIA BORDERLINE T ABNORMALITIES, DIFFUSE LEADS : Confirmed by: Todd Shi MD 25-Apr-2018 00:13:06
[2018-04-25] MEDS: METRONIDAZOLE 500 MG/NS RTU 100 ML IV SCH ×4 (05:23→23:49)
[2018-04-25] MEDS: METHYLPREDNISOLONE INJ 40 MG/1 ML SDV IV SCH ×3 (05:24→21:44)
[2018-04-25 05:42] LABS: HEMATOCRIT 31.4 % (36.0-47.0); HEMOGLOBIN 10.4 g/dL (12.0-15.5); MEAN CORPUSCULAR HGB CONC 33.2 g/dL (32.0-36.0); MEAN CORPUSCULAR VOLUME 72 fl (80-97); PLATELET COUNT 114 10^3/uL (150-450); RED BLOOD COUNT 4.33 10^6/uL (3.72-5.28); RED CELL DISTRIBUTION WIDTH 15.9 % (11.5-14.0)
[2018-04-25 06:00] LABS: ANION GAP 12 (5-19); BLOOD UREA NITROGEN 11 mg/dL (7-20); CALCIUM 8.2 mg/dL (8.4-10.2); CARBON DIOXIDE 20 mmol/L (22-30); CHLORIDE 108 mmol/L (98-107); GLUCOSE 131 mg/dL (75-110); POTASSIUM 3.8 mmol/L (3.6-5.0); SODIUM 140.2 mmol/L (137-145)
[2018-04-25 07:03] LABS: ABSOLUTE LYMPHOCYTES# (MANUAL) 0.3 10^3/uL (0.5-4.7); ABSOLUTE MONOCYTES # (MANUAL) 0.6 10^3/uL (0.1-1.4); ABSOLUTE NEUTROPHILS# (MANUAL) 13.2 10^3/uL (1.7-8.2); BASOPHILS % (MANUAL) 0 % (0-2); EOSINOPHILS % (MANUAL) 0 % (0-6); LYMPHOCYTES % (MANUAL) 2 % (13-45); MONOCYTES % (MANUAL) 4 % (3-13); SEGMENTED NEUTROPHILS % (MAN) 73 % (42-78); TOTAL CELLS COUNTED 100
[2018-04-25 07:05] LABS: ANISOCYTOSIS SLIGHT; HYPOCHROMASIA SLIGHT; OVALOCYTES SLIGHT; PLATELET COMMENT DECREASED
[2018-04-25 07:07] LABS: BAND NEUTROPHILS % (MANUAL) 21 % (3-5)
--- NOTE | 2018-04-25 09:47 | PDOC PROGRESS REPORT ---
Subjective Progress Note for:: 04/25/18 Subjective:: left gluteal drainage Reason For Visit: SEPSIS Physical Exam Vital Signs: Temp Pulse Resp BP Pulse Ox 98.6 F 110 H 18 108/50 L 100 04/25/18 07:59 04/25/18 07:59 04/25/18 07:59 04/25/18 07:59 04/25/18 07:59 Intake & Output 04/24/18 04/25/18 04/26/18 06:59 06:59 06:59 Intake Total 1020 Balance 1020 Weight 121 kg General appearance: PRESENT: no acute distress Rectal exam: PRESENT: deferred, other - no perianal cellulitis Skin exam: PRESENT: other - open draining abscess site left gluteus Results Laboratory Results: 04/25/18 04:56 04/25/18 04:56 04/25/18 04/25/18 04:56 04:56 WBC 14.0 H RBC 4.33 Hgb 10.4 L Hct 31.4 L MCV 72 L MCH 24.0 L MCHC 33.2 RDW 15.9 H Plt Count 114 L Seg Neutrophils % Not Reportable Lymphocytes % Not Reportable Monocytes % Not Reportable Eosinophils % Not Reportable Basophils % Not Reportable Absolute Neutrophils Not Reportable Absolute Lymphocytes Not Reportable Absolute Monocytes Not Reportable Absolute Eosinophils Not Reportable Absolute Basophils Not Reportable Sodium 140.2 Potassium 3.8 Chloride 108 H Carbon Dioxide 20 L Anion Gap 12 BUN 11 Creatinine 0.73 Est GFR ( Amer) > 60 Est GFR (Non-Af Amer) > 60 Glucose 131 H Calcium 8.2 L Impressions: Abdomen/Pelvis CT 04/24/18 00:00 IMPRESSION: 1. Serpiginous left perirectal abscess extending from the level of the coccyx, along the left perirectal fat to the left gluteal skin. 2. Cholelithiasis without evidence of cholecystitis. 3. Re- demonstration of scattered small mesenteric lymph nodes. Assessment & Plan - Plan Summary Plan Summary: A/ Chron's disease affecting the rectum CT scan demonstrating left gluteal deep cutaneous fistulous tract; no obvious connection with rectum is identified draining site left gluteus as per CT finding P/ continue IV abx Plan to discharge patient to home in the next 1-2 days once the left gluteal abscess cx results are back The patient fistulous tract and drainage should be addressed by her GI specialist as the rectum is involved by Crohn's disease Colonoscopy planned at [facility] @
[2018-04-25] MEDS: ENOXAPARIN SODIUM INJ 40 MG/0.4 ML DISP.SYRIN SUBCUT SCH (10:19)
[2018-04-25] MEDS: LEVOFLOXACIN 750 MG/D5W RTU 750 MG/150 ML RTUPB IV SCH (10:20)
--- NOTE | 2018-04-25 10:36 | PDOC PROGRESS REPORT ---
Subjective Progress Note for:: 04/25/18 Subjective:: Admitted overnight for abscess Reason For Visit: SEPSIS Physical Exam Vital Signs: Temp Pulse Resp BP Pulse Ox 98.6 F 110 H 18 108/50 L 100 04/25/18 07:59 04/25/18 07:59 04/25/18 07:59 04/25/18 07:59 04/25/18 07:59 Intake & Output 04/24/18 04/25/18 04/26/18 06:59 06:59 06:59 Intake Total 1020 Balance 1020 Weight 121 kg General appearance: PRESENT: no acute distress, well-developed, well-nourished Head exam: PRESENT: atraumatic, normocephalic Eye exam: PRESENT: conjunctiva pink, EOMI, PERRLA. ABSENT: scleral icterus Ear exam: PRESENT: normal external ear exam Mouth exam: PRESENT: moist, tongue midline Neck exam: ABSENT: carotid bruit, JVD, lymphadenopathy, thyromegaly Respiratory exam: PRESENT: clear to auscultation da. ABSENT: rales, rhonchi, wheezes Cardiovascular exam: PRESENT: RRR. ABSENT: diastolic murmur, rubs, systolic murmur Pulses: PRESENT: normal dorsalis pedis pul Vascular exam: PRESENT: normal capillary refill GI/Abdominal exam: PRESENT: normal bowel sounds, soft. ABSENT: distended, guarding, mass, organolmegaly, rebound, tenderness Rectal exam: PRESENT: deferred Extremities exam: PRESENT: full ROM. ABSENT: calf tenderness, clubbing, pedal edema Musculoskeletal exam: PRESENT: other - L buttock Neurological exam: PRESENT: alert, awake, oriented to person, oriented to place , oriented to time, oriented to situation, CN II-XII grossly intact. ABSENT: motor sensory deficit Psychiatric exam: PRESENT: appropriate affect, normal mood. ABSENT: homicidal ideation, suicidal ideation Skin exam: PRESENT: dry, intact, warm. ABSENT: cyanosis, rash Results Laboratory Results: 04/25/18 04:56 04/25/18 04:56 04/25/18 04/25/18 04:56 04:56 WBC 14.0 H RBC 4.33 Hgb 10.4 L Hct 31.4 L MCV 72 L MCH 24.0 L MCHC 33.2 RDW 15.9 H Plt Count 114 L Seg Neutrophils % Not Reportable Lymphocytes % Not Reportable Monocytes % Not Reportable Eosinophils % Not Reportable Basophils % Not Reportable Absolute Neutrophils Not Reportable Absolute Lymphocytes Not Reportable Absolute Monocytes Not Reportable Absolute Eosinophils Not Reportable Absolute Basophils Not Reportable Sodium 140.2 Potassium 3.8 Chloride 108 H Carbon Dioxide 20 L Anion Gap 12 BUN 11 Creatinine 0.73 Est GFR ( Amer) > 60 Est GFR (Non-Af Amer) > 60 Glucose 131 H Calcium 8.2 L Impressions: Abdomen/Pelvis CT 04/24/18 00:00 IMPRESSION: 1. Serpiginous left perirectal abscess extending from the level of the coccyx, along the left perirectal fat to the left gluteal skin. 2. Cholelithiasis without evidence of cholecystitis. 3. Re- demonstration of scattered small mesenteric lymph nodes. Assessment & Plan - Diagnosis (1) Sepsis Qualifiers: Sepsis type: sepsis due to unspecified organism Qualified Code(s): A41.9 - Sepsis, unspecified organism Is this a current diagnosis for this admission?: Yes Plan: Per sepsis criteria on admission. (2) Left buttock abscess Is this a current diagnosis for this admission?: Yes Plan: Seen by surgery, cont current antibiotics (3) Anal fissure Is this a current diagnosis for this admission?: Yes Plan: Secondary to Crohns (4) Crohns disease Qualifiers: Gastrointestinal tract location: unspecified location Digestive disease complication type: unspecified complication Qualified Code(s): K50.919 - Crohn 's disease, unspecified, with unspecified complications Is this a current diagnosis for this admission?: Yes (5) Obesity Qualifiers: Obesity type: due to excess calories Is this a current diagnosis for this admission?: Yes - Time Time Spent with patient: 15-24 minutes Medications reviewed and adjusted accordingly: Yes Anticipated discharge: Home Within: within 72 hours - Inpatient Certification Based on my medical assessment, after consideration of the patient's comorbidities, presenting symptoms, or acuity I expect that the services needed warrant INPATIENT care.: Yes Medical Necessity: Significant Comorbidiites Make Outpatient Treatment Too Risky , Need For IV Fluids, Need for IV Antibiotics
[2018-04-25] MEDS: OXYCODONE-ACETAMINOPHEN 5-325 MG TABLET PO PRN (14:38)
[2018-04-26] MEDS: METRONIDAZOLE 500 MG/NS RTU 100 ML IV SCH ×2 (05:45→14:27)
[2018-04-26] MEDS: METHYLPREDNISOLONE INJ 40 MG/1 ML SDV IV SCH ×3 (05:45→23:04)
[2018-04-26 06:05] LABS: HEMATOCRIT 30.5 % (36.0-47.0); MEAN CORPUSCULAR HEMOGLOBIN 23.7 pg (27.0-33.4); MEAN CORPUSCULAR HGB CONC 32.8 g/dL (32.0-36.0); MEAN CORPUSCULAR VOLUME 72 fl (80-97); PLATELET COUNT 103 10^3/uL (150-450); RED BLOOD COUNT 4.22 10^6/uL (3.72-5.28); RED CELL DISTRIBUTION WIDTH 16.3 % (11.5-14.0)
[2018-04-26 06:38] LABS: ABSOLUTE LYMPHOCYTES# (MANUAL) 0.4 10^3/uL (0.5-4.7); ABSOLUTE MONOCYTES # (MANUAL) 0.4 10^3/uL (0.1-1.4); ABSOLUTE NEUTROPHILS# (MANUAL) 11.3 10^3/uL (1.7-8.2); BAND NEUTROPHILS % (MANUAL) 5 % (3-5); BASOPHILS % (MANUAL) 0 % (0-2); EOSINOPHILS % (MANUAL) 0 % (0-6); LYMPHOCYTES % (MANUAL) 3 % (13-45); MONOCYTES % (MANUAL) 3 % (3-13); SEGMENTED NEUTROPHILS % (MAN) 89 % (42-78); TOTAL CELLS COUNTED 100
[2018-04-26 06:41] LABS: ANISOCYTOSIS 1+
[2018-04-26 06:42] LABS: HYPOCHROMASIA 1+; PLATELET COMMENT ADEQUATE
[2018-04-26 10:04] LABS: PATH REVIEW PATHOLOGIST REVIEWED
[2018-04-26] MEDS: LEVOFLOXACIN 750 MG/D5W RTU 750 MG/150 ML RTUPB IV SCH (10:22)
[2018-04-26] MEDS: ENOXAPARIN SODIUM INJ 40 MG/0.4 ML DISP.SYRIN SUBCUT SCH (10:22)
[2018-04-26] MEDS: FLUCONAZOLE 100 MG TABLET PO SCH (13:08)
--- NOTE | 2018-04-26 14:16 | PDOC PROGRESS REPORT ---
Subjective Progress Note for:: 04/26/18 Subjective:: Admitted for perirectal abscess secondary to Crohn's disease and currently on intravenous antibiotics. Patient also: Complained of vaginal discharge today. I have placed him Diflucan Reason For Visit: SEPSIS Physical Exam Vital Signs: Temp Pulse Resp BP Pulse Ox 98.6 F 92 19 118/63 99 04/26/18 11:52 04/26/18 11:52 04/26/18 11:52 04/26/18 11:52 04/26/18 11:52 Intake & Output 04/25/18 04/26/18 04/27/18 06:59 06:59 06:59 Intake Total 1020 2786 200 Balance 1020 2786 200 Weight 121 kg 121.5 kg General appearance: PRESENT: no acute distress, well-developed, well-nourished Head exam: PRESENT: atraumatic, normocephalic Eye exam: PRESENT: conjunctiva pink, EOMI, PERRLA. ABSENT: scleral icterus Ear exam: PRESENT: normal external ear exam Mouth exam: PRESENT: moist, tongue midline Neck exam: ABSENT: carotid bruit, JVD, lymphadenopathy, thyromegaly Respiratory exam: PRESENT: clear to auscultation da. ABSENT: rales, rhonchi, wheezes Cardiovascular exam: PRESENT: RRR. ABSENT: diastolic murmur, rubs, systolic murmur Pulses: PRESENT: normal dorsalis pedis pul Vascular exam: PRESENT: normal capillary refill GI/Abdominal exam: PRESENT: normal bowel sounds, soft. ABSENT: distended, guarding, mass, organolmegaly, rebound, tenderness Rectal exam: PRESENT: deferred Gentrourinary exam: PRESENT: other - whitish vaginal discharge Extremities exam: PRESENT: full ROM. ABSENT: calf tenderness, clubbing, pedal edema Musculoskeletal exam: PRESENT: other - R buttock drainage covered with dressing Neurological exam: PRESENT: alert, awake, oriented to person, oriented to place , oriented to time, oriented to situation, CN II-XII grossly intact. ABSENT: motor sensory deficit Psychiatric exam: PRESENT: appropriate affect, normal mood. ABSENT: homicidal ideation, suicidal ideation Skin exam: PRESENT: dry, intact, warm. ABSENT: cyanosis, rash Results Laboratory Results: 04/26/18 05:27 04/25/18 04:56 04/26/18 05:27 WBC 12.0 H RBC 4.22 Hgb 10.0 L Hct 30.5 L MCV 72 L MCH 23.7 L MCHC 32.8 RDW 16.3 H Plt Count 103 L Seg Neutrophils % Not Reportable Lymphocytes % Not Reportable Monocytes % Not Reportable Eosinophils % Not Reportable Basophils % Not Reportable Absolute Neutrophils Not Reportable Absolute Lymphocytes Not Reportable Absolute Monocytes Not Reportable Absolute Eosinophils Not Reportable Absolute Basophils Not Reportable Impressions: Abdomen/Pelvis CT 04/24/18 00:00 IMPRESSION: 1. Serpiginous left perirectal abscess extending from the level of the coccyx, along the left perirectal fat to the left gluteal skin. 2. Cholelithiasis without evidence of cholecystitis. 3. Re- demonstration of scattered small mesenteric lymph nodes. Assessment & Plan - Diagnosis (1) Sepsis Qualifiers: Sepsis type: sepsis due to unspecified organism Qualified Code(s): A41.9 - Sepsis, unspecified organism Is this a current diagnosis for this admission?: Yes Plan: This has resolved. (2) Left buttock abscess Is this a current diagnosis for this admission?: Yes Plan: Patient was seen by general surgery with the impression of the left perirectal abscess extending from the level of the coccyx along the left perirectal fat to the left gluteal skin. The recommendation is continue with IV antibiotics and for her to follow-up with the GI specialist at [facility] for further evaluation of the fistulous tract and drainage. She is currently growing group a beta strep as well as gram-negative rods and she is on Levaquin and Flagyl. I think it is reasonable to obtain an infectious disease consultation to help us manage this patient given her complicated infection. (3) Anal fissure Is this a current diagnosis for this admission?: Yes Plan: Secondary to Crohn's disease (4) Crohns disease Qualifiers: Gastrointestinal tract location: unspecified location Digestive disease complication type: unspecified complication Qualified Code(s): K50.919 - Crohn 's disease, unspecified, with unspecified complications Is this a current diagnosis for this admission?: Yes Plan: This is the underlying etiology for a perirectal abscess and fistulas. Patient apparently has a follow-up appointment with GI at [facility]. at this point she still requires IV antibiotics and she is now stable for discharge home. (5) Obesity Qualifiers: Obesity type: due to excess calories Is this a current diagnosis for this admission?: Yes Plan: Weight loss encouraged - Time Time Spent with patient: 15-24 minutes Medications reviewed and adjusted accordingly: Yes Anticipated discharge: Home Within: within 72 hours - Inpatient Certification Based on my medical assessment, after consideration of the patient's comorbidities, presenting symptoms, or acuity I expect that the services needed warrant INPATIENT care.: Yes I certify that my determination is in accordance with my understanding of Medicare's requirements for reasonable and necessary INPATIENT services [42 CFR 412.3e].: Yes Medical Necessity: Need for IV Antibiotics, Risk of Complication if Not Cared For in Hospital
--- NOTE | 2018-04-26 15:09 | Progress Note ---
Provider Note Provider Note: I discussed this case with Dr. Fredi Marrero, [facility] infectious disease and she recommends starting the patient on Unasyn IV which will cover the potential organisms that are currently growing including anaerobes. She also suggest that patient can be switched to Augmentin at discharge. I will DC the Flagyl and Levaquin and start on Unasyn as suggested.
--- NOTE | 2018-04-26 15:14 | Progress Note ---
Provider Note Provider Note: ID Consult Note Asked by Dr Chou to provide recommendations regarding choice of antibiotic therapy. Pt not seen or examined. Discussed case over the telephone and reviewed VS, imaging reports, labs and provider reports. Pt is a 27 year old woman with PMH notable for obesity and Crohn's disease. She is reported to have had a prior left buttock abscess around 5 years ago and suspected fistula in ano. Pt presented with complaint of several days of increased drainage from her left buttock away from the initial operative site. She had fever of 102. F on presentation and tachycardia. Her exam was limited due to pain, but she was found to have a fissure on rectal exam that was very tender and a spontaneously draining abscess approximately 10 cm away from the anal verge. Labs were notable for leukocytosis of around 13k. CT of the abdomen/pelvis with IV contrast on 04/24 showed a serpiginous L perirectal abscess extending from the level of the coccyx along the left perirectal fat to the left gluteal skin. Wound culture has been preliminarily reported as showing growth of 4+ Group A Strep and 1 colony of a Gram negative del. Blood cultures have shown on growth to date. Impression/Recommendations Perirectal abscess - in terms of antimicrobial therapy, IV Unasyn as an inpatient should be sufficient to address Group A Strep and also provide empiric enteric gram negative and anaerobic activity; when the patient is ready for discharge home, this could be changed to Augmetin 500/125 mg PO TID to complete the remainder of treatment. Based on further information from culture results, antibiotic therapy could be modified if needed. Generally, antibiotic duration is around 10-14 days Fredi Marrero MD, [facility] Infectious Diseases pager [phone]
[2018-04-26] MEDS: AMPICILLIN SODIUM/SULBACTAM NA 3 GM in NORMAL SALINE 100 ML IV SCH ×2 (17:30→23:10)
[2018-04-26] MEDS: OXYCODONE-ACETAMINOPHEN 5-325 MG TABLET PO PRN (23:04)
[2018-04-27] MEDS: AMPICILLIN SODIUM/SULBACTAM NA 3 GM in NORMAL SALINE 100 ML IV SCH ×3 (05:54→17:27)
[2018-04-27] MEDS: METHYLPREDNISOLONE INJ 40 MG/1 ML SDV IV SCH ×2 (05:54→14:21)
[2018-04-27 06:01] LABS: HEMATOCRIT 31.2 % (36.0-47.0); HEMOGLOBIN 10.4 g/dL (12.0-15.5); MEAN CORPUSCULAR HEMOGLOBIN 24.2 pg (27.0-33.4); MEAN CORPUSCULAR HGB CONC 33.5 g/dL (32.0-36.0); MEAN CORPUSCULAR VOLUME 72 fl (80-97); PLATELET COUNT 119 10^3/uL (150-450); RED BLOOD COUNT 4.31 10^6/uL (3.72-5.28); RED CELL DISTRIBUTION WIDTH 16.3 % (11.5-14.0); WHITE BLOOD COUNT 10.2 10^3/uL (4.0-10.5)
[2018-04-27 08:19] LABS: ABSOLUTE LYMPHOCYTES# (MANUAL) 0.8 10^3/uL (0.5-4.7); ABSOLUTE MONOCYTES # (MANUAL) 0.1 10^3/uL (0.1-1.4); ABSOLUTE NEUTROPHILS# (MANUAL) 9.3 10^3/uL (1.7-8.2); BASOPHILS % (MANUAL) 0 % (0-2); EOSINOPHILS % (MANUAL) 0 % (0-6); LYMPHOCYTES % (MANUAL) 4 % (13-45); MONOCYTES % (MANUAL) 1 % (3-13); SEGMENTED NEUTROPHILS % (MAN) 91 % (42-78); TOTAL CELLS COUNTED 100
[2018-04-27 08:20] LABS: ANISOCYTOSIS 1+; OVALOCYTES 1+; PLATELET COMMENT DECREASED; POIKILOCYTOSIS 1+; TEAR DROP CELLS 1+
[2018-04-27] MEDS: ENOXAPARIN SODIUM INJ 40 MG/0.4 ML DISP.SYRIN SUBCUT SCH (10:06)
[2018-04-27] MEDS: FLUCONAZOLE 100 MG TABLET PO SCH (14:21)
[2018-04-27 15:46] VITALS: BP 124/69
--- NOTE | 2018-04-27 17:36 | PDOC DISCHARGE SUMMARY ---
General - Admit/Disc Date/PCP Admission Date/Primary Care Provider: 04/24/18 21:11 Discharge Date: 04/27/18 - Discharge Diagnosis (1) Left buttock abscess Is this a current diagnosis for this admission?: Yes Summary: She had a left buttock perianal abscess associated with Crohn's disease had developed a fistula and was draining over the left gluteus. It grew out E. coli , and group A streptococcus was also recovered. Infectious disease was consulted and recommended treating with Augmentin 3 times a day for 10-14 days. She was seen by general surgery who recommended no further intervention at this time. She has follow-up with her head and neck surgeon at [facility] scheduled for the end of next week and at that time any further intervention on this particular problem can be made at that time once the infection is cleared. (2) Crohns disease Is this a current diagnosis for this admission?: Yes Summary: This is not acutely exacerbated during this hospitalization. She will continue on her usual maintenance medication and she gets every 8 weeks. (3) Morbid (severe) obesity due to excess calories Is this a current diagnosis for this admission?: Yes Summary: Lifestyle modifications were recommended. - Additional Information Resuscitation Status: Full Code Discharge Diet: Regular Discharge Activity: Activity As Tolerated, No tub bath Prescriptions: Amoxicillin/Potassium Clav [Augmentin 500-125 Tablet] 1 each PO Q8 #42 tablet Hydrocodone Bit/Homatrop Me-Br [Hydrocodone Compound Syrup] 5 ml PO Q6HP PRN # 120 ml PRN Reason: Cough Home Medications: Ustekinumab [Stelara] 90 mg [id number] 04/25/18 Amoxicillin/Potassium Clav [Augmentin 500-125 Tablet] 1 each PO Q8 #42 tablet Hydrocodone Bit/Homatrop Me-Br [Hydrocodone Compound Syrup] 5 ml PO Q6HP PRN # 120 ml 04/27/18 History of Present Illness Patient complains of: Left gluteal drainage and pain History of Present Illness: SRAVANTHI MENDEZ is a 27 year old female Hospital Course Hospital Course: She was placed on empiric antibiotics and general surgery was consulted. The made no further recommendations other than to continue antibiotics and have her follow-up with her head and neck surgeon as previously scheduled. Infectious disease was consulted and made antibiotic recommendations as noted above. Her labs were reassuring and she was discharged today in good condition. Physical Exam Vital Signs: Temp Pulse Resp BP Pulse Ox 97.9 F 71 19 124/69 97 04/27/18 15:21 04/27/18 15:21 04/27/18 15:21 04/27/18 15:21 04/27/18 15:21 Intake & Output 04/26/18 04/27/18 04/28/18 06:59 06:59 06:59 Intake Total 2786 1428 300 Balance 2786 1428 300 Weight 121.5 kg 121.8 kg General appearance: PRESENT: no acute distress, cooperative, morbidly obese Head exam: PRESENT: atraumatic, normocephalic Respiratory exam: PRESENT: clear to auscultation da, unlabored. ABSENT: accessory muscle use, chest wall tenderness, crackles, decreased breath sounds, prolonged expiratory phas, rales, rhonchi, wheezes Cardiovascular exam: PRESENT: RRR. ABSENT: diastolic murmur, gallop, rubs, systolic murmur Vascular exam: PRESENT: normal capillary refill GI/Abdominal exam: PRESENT: normal bowel sounds, soft. ABSENT: ascites, diminished bowel sounds, distended, guarding, rebound, tenderness Rectal exam: PRESENT: deferred Extremities exam: ABSENT: joint swelling, pedal edema Musculoskeletal exam: PRESENT: ambulatory, full ROM, normal inspection Neurological exam: PRESENT: alert, awake, oriented to person, oriented to place , oriented to time Results Laboratory Results: 04/27/18 05:00 04/25/18 04:56 04/27/18 05:00 WBC 10.2 RBC 4.31 Hgb 10.4 L Hct 31.2 L MCV 72 L MCH 24.2 L MCHC 33.5 RDW 16.3 H Plt Count 119 L Seg Neutrophils % Not Reportable Lymphocytes % Not Reportable Monocytes % Not Reportable Eosinophils % Not Reportable Basophils % Not Reportable Absolute Neutrophils Not Reportable Absolute Lymphocytes Not Reportable Absolute Monocytes Not Reportable Absolute Eosinophils Not Reportable Absolute Basophils Not Reportable 04/24/18 22:55 Buttocks - Abscess Gram Stain - Final 04/24/18 22:55 Buttocks - Abscess Wound Culture - Final Group A Beta Streptococcus Escherichia Coli Bacteroides Fragilis Group Impressions: Abdomen/Pelvis CT 04/24/18 00:00 IMPRESSION: 1. Serpiginous left perirectal abscess extending from the level of the coccyx, along the left perirectal fat to the left gluteal skin. 2. Cholelithiasis without evidence of cholecystitis. 3. Re- demonstration of scattered small mesenteric lymph nodes. Qualifiers - * PATIENT BEING DISCHARGED WITH ANY OF THE FOLLOWING DIAGNOSIS: No
== END 2018-04-27 19:13 | disposition home or self-care (01) | DRG 603 ==
LOC: ER 14:06 → EH 21:11 → 3W 22:37
PROVIDERS: ADMIT Internal Medicine; ATTEND Internal Medicine
DX: L02.31 Cutaneous abscess of buttock (principal); K50.914 Crohn's disease, unspecified, with abscess; Z68.41 Body mass index [BMI] 40.0-44.9, adult; K80.20 Calculus of gallbladder without cholecystitis without obstruction; B96.6 Bacteroides fragilis [B. fragilis] as the cause of diseases classified elsewhere; B96.20 Unspecified Escherichia coli [E. coli] as the cause of diseases classified elsewhere; B95.0 Streptococcus, group A, as the cause of diseases classified elsewhere; E66.01 Morbid (severe) obesity due to excess calories; Z79.899 Other long term (current) drug therapy; Z88.6 Allergy status to analgesic agent; Z91.018 Allergy to other foods; Z82.61 Family history of arthritis; Z83.3 Family history of diabetes mellitus; Z82.49 Family history of ischemic heart disease and other diseases of the circulatory system; Z83.49 Family history of other endocrine, nutritional and metabolic diseases
CPT/HCPCS: 36415; 74177; 80048; 80053; 81001; 81025; 82803; 83605; 85025; 85610; 87040; 87070; 87075; 87077; 87086; 87186; 87205; 87880; 93005; 93010; 96361; 96365; 96375; 96376; 99285; J0295; J1650; J1885; J1956; J2920; J3010; J7030

== ENCOUNTER 2018-09-22 16:40 | Emergency (ER) | payer SELFPAY ==
--- NOTE | 2018-09-22 17:26 | ER Document Report ---
ED Medical Screen (RME) - General Chief Complaint: Abscess Stated Complaint: POSSIBLE ABSCESS Time Seen by Provider: 09/22/18 17:13 Notes: 28 years old female with a history of multiple perineal abscess as well as peritoneal abscess presents today with swelling over the perineal region and pain. No fever chills or other constitutional symptoms. TRAVEL OUTSIDE OF THE [place] IN LAST 30 DAYS: No - Related Data Allergies/Adverse Reactions: morphine [Morphine] Allergy (Mild, Verified 12/03/16 15:05) Hives pineapple Adverse Reaction (Verified 04/24/18 23:20) Past Medical History - Social History Frequency of alcohol use: None Drug Abuse: None Renal/ Medical History: Reports: Hx Ovarian Cysts. Denies: Hx Peritoneal Dialysis GI Medical History: Reports: Hx Crohn's Disease, Hx Colonoscopy, Hx Endoscopy Psychiatric Medical History: Denies: Hx Depression Past Surgical History: Reports: Hx Abdominal Surgery - Peritoneal abscess and fistula removed JACKIE chain inserted and removed, Hx Gynecologic Surgery - pelvic abscesses x2, Other - Abscess drainage and debridement - Immunizations Hx Diphtheria, Pertussis, Tetanus Vaccination: No History of Influenza Vaccine for 08/2017 - 01/2018 Season: Yes Influenza Administration Date for 08/2017 - 01/2018 Season: 08/09/17 Physical Exam - Vital signs Vitals: Temp Pulse Resp BP Pulse Ox 97.8 F 84 20 150/79 H 99 09/22/18 16:46 09/22/18 16:46 09/22/18 16:46 09/22/18 16:46 09/22/18 16:46 Course - Vital Signs Vital signs: Temp Pulse Resp BP Pulse Ox 97.8 F 84 20 150/79 H 99 09/22/18 16:46 09/22/18 16:46 09/22/18 16:46 09/22/18 16:46 09/22/18 16:46
[2018-09-22 18:07] LABS: APPEARANCE,URINE SLIGHTLY-CLOUDY; BILIRUBIN,URINE NEGATIVE (NEGATIVE); COLOR,URINE YELLOW; GLUCOSE, URINE NEGATIVE (NEGATIVE); KETONES,URINE NEGATIVE (NEGATIVE); LEUKOCYTE ESTERASE,URINE MODERATE (NEGATIVE); NITRITE,URINE NEGATIVE (NEGATIVE); PROTEIN,URINE NEGATIVE (NEGATIVE); URINE SPECIFIC GRAVITY 1.018; UROBILINOGEN,URINE NEGATIVE mg/dL (<2.0)
[2018-09-22 18:08] LABS: ABSOLUTE EOSINOPHILS # (AUTO) 0.1 10^3/uL (0.0-0.6); ABSOLUTE LYMPHOCYTES (AUTO) 1.1 10^3/uL (0.5-4.7); ABSOLUTE MONOCYTES (AUTO) 0.4 10^3/uL (0.1-1.4); BASOPHILS % (AUTO) 0.5 % (0-2); EOSINOPHILS % (AUTO) 1.1 % (0-6); HEMOGLOBIN 11.9 g/dL (12.0-15.5); LYMPHOCYTES % (AUTO) 17.2 % (13-45); MEAN CORPUSCULAR HEMOGLOBIN 24.1 pg (27.0-33.4); MEAN CORPUSCULAR HGB CONC 32.2 g/dL (32.0-36.0); MEAN CORPUSCULAR VOLUME 75 fl (80-97); MONOCYTES % (AUTO) 5.5 % (3-13); PLATELET COUNT 244 10^3/uL (150-450); RED BLOOD COUNT 4.95 10^6/uL (3.72-5.28); RED CELL DISTRIBUTION WIDTH 15.3 % (11.5-14.0); SEGMENTED NEUTROPHILS % (AUTO) 75.7 % (42-78); TOTAL CELLS COUNTED % (AUTO) 100 %; WHITE BLOOD COUNT 6.7 10^3/uL (4.0-10.5)
--- NOTE | 2018-09-22 18:13 | ER Document Report ---
ED General - General Chief Complaint: Abscess Stated Complaint: POSSIBLE ABSCESS Time Seen by Provider: 09/22/18 17:13 TRAVEL OUTSIDE OF THE [place] IN LAST 30 DAYS: No - HPI Notes: Patient is a 28-year-old female with history of Crohn's disease and previous fistulas sent to the ED complaining of an abscess to her left buttock x2-3 days. Patient states that about 5 years ago she had an abscess near her rectal area that had a fistula that needed to be opened by surgery. Patient states that this is in a different area at this time. She is otherwise able to eat and drink without difficulties. She is urinating normally and having normal bowel movements. She has not had any vaginal discharge, odor, or bleeding. Denies any headache, fever, URI, sore throat, chest pain, palpitations, syncope , cough, shortness of breath, wheeze, dyspnea, abdominal pain, nausea/vomiting/ diarrhea, urinary retention, dysuria, hematuria, loss of control of bowel or bladder, numbness/tingling, saddle anesthesia, muscle paralysis/weakness, or rash. - Related Data Allergies/Adverse Reactions: morphine [Morphine] Allergy (Mild, Verified 12/03/16 15:05) Hives pineapple Adverse Reaction (Verified 04/24/18 23:20) Past Medical History - Social History Smoking Status: Never Smoker Frequency of alcohol use: None Drug Abuse: None Family History: Arthritis, CAD, DM, Hyperlipidemia, Hypertension, Thyroid Disfunction Patient has suicidal ideation: No Patient has homicidal ideation: No Renal/ Medical History: Reports: Hx Ovarian Cysts. Denies: Hx Peritoneal Dialysis GI Medical History: Reports: Hx Crohn's Disease, Hx Colonoscopy, Hx Endoscopy Psychiatric Medical History: Denies: Hx Depression Past Surgical History: Reports: Hx Abdominal Surgery - Peritoneal abscess and fistula removed JACKIE chain inserted and removed, Hx Gynecologic Surgery - pelvic abscesses x2, Other - Abscess drainage and debridement - Immunizations Hx Diphtheria, Pertussis, Tetanus Vaccination: No Hx Pneumococcal Vaccination: 08/09/17 Review of Systems - Review of Systems -: Yes All other systems reviewed and negative Physical Exam - Vital signs Vitals: Temp Pulse Resp BP Pulse Ox 97.8 F 84 20 150/79 H 99 09/22/18 16:46 09/22/18 16:46 09/22/18 16:46 09/22/18 16:46 09/22/18 16:46 - Notes Notes: PHYSICAL EXAMINATION: GENERAL: Well-appearing, well-nourished and in no acute distress. LUNGS: Breath sounds clear to auscultation bilaterally and equal. No wheezes rales or rhonchi. HEART: Regular rate and rhythm without murmurs, rubs, gallops. ABDOMEN: Soft, nontender, nondistended abdomen. No guarding, no rebound. No masses appreciated. Normal bowel sounds present. No CVA tenderness bilaterally. Buttock/rectal: There is a 4cm abscess noted superficially with fluctuance and tenderness to the left buttock not near the anus. Minimal induration surrounding with mild erythema/warmth. No purulence or streaks noted. No obvious fistula noted. No rectal tenderness or swelling near it. Musculoskeletal: FROM to passive/active. Strength 5+/5. Extremities: No cyanosis, clubbing, or edema b/l. Peripheral pulses 2+. Capillary refill less than 3 seconds. NEUROLOGICAL: Normal speech, normal gait. PSYCH: Normal mood, normal affect. SKIN: see above. Course - Re-evaluation Re-evalutation: 09/22/18 19:25 Patient is an afebrile, well-hydrated, 28-year-old female who presents to the ED with a right buttock abscess. Vitals are acceptable without any significant tachycardia, tachypnea, or hypoxia. PE is otherwise unremarkable. Patient is nontoxic-appearing and is tolerating p.o. without difficulty. CBC unremarkable. Incision and drainage was performed successfully without any complications and packing was placed. Wound dressing was placed and wound instructions reviewed. Low suspicion for any sepsis, meningitis, necrotizing fasciitis, or other systemic emergent condition at this time. I could not adequately assess and rule out a fistula component. I strongly advised the patient that she needs to follow-up with surgery in 2-3 days for recheck and further evaluation. I will send her home with a prescription for Keflex and Bactrim. Wound culture was obtained. Conservative measures otherwise for symptoms. Recheck with your PCM next week. Return to the ED with any worsening /concerning symptoms otherwise as reviewed discharge. Patient is in agreement. - Vital Signs Vital signs: Temp Pulse Resp BP Pulse Ox 97.8 F 84 20 150/79 H 99 09/22/18 16:46 11/14/18 16:46 09/22/18 16:46 09/22/18 16:46 09/22/18 16:46 - Laboratory Result Diagrams: 09/22/18 17:50 09/22/18 17:50 Laboratory results interpreted by me: 09/22/18 09/22/18 16:46 17:50 Hgb 11.9 L MCV 75 L MCH 24.1 L RDW 15.3 H Ur Leukocyte Esterase MODERATE H Procedures - Incision and Drainage Left Buttock Time completed: 19:20 Type: Simple Anesthetic type: 1% Lidocaine mL's of anesthetic: 10 Blade size: 11 I&D procedure: Iodoform packing placed, Other - chlorhexadine/saline Incision Method: Incision made by scalpel Amount/type of drainage: abundant purulent Discharge - Discharge Clinical Impression: Left buttock abscess Condition: Stable Disposition: HOME, SELF-CARE Instructions: Cephalexin ([facility]), Trimethoprim-Sulfa ([facility]), Post Incision and Drainage, Abscess ([facility]) Additional Instructions: Do not shower or bathe for 24 hours. After 24 hours she may shower but no submersion of the wound under water. Keep the original dressing on the wound for 24 hours unless the drainage soaks through. Change the dressing daily thereafter and use a small amount of triple antibiotic ointment over the open wound. Schedule an appointment with the general surgeon's office for recheck on thursday this week. See your PCM in 3-5 days for recheck otherwise and continue direction for wound packing. You may return to the ED if needed. Monitor for any signs of worsening pain or redness, streaks, and/or fever. Return to the ED if noticing any of the above symptoms or as needed. Take medications as directed. Prescriptions: Cephalexin Monohydrate [Keflex 500 mg Capsule] 500 mg PO TID #21 capsule Sulfamethoxazole/Trimethoprim [Bactrim Ds Tablet] 1 each PO BID #20 tablet Forms: Elevated Blood Pressure Referrals: JHONY ANG MD [ACTIVE STAFF] - 09/24/18
[2018-09-22] MEDS ORDERED: HYDROCODONE/ACETAMINOPHEN 5-325 MG (6 TAB/ER DISP) PO PRN (19:33)
[2018-09-22 19:45] VITALS: BP 138/68
== END 2018-09-22 19:50 | disposition home or self-care (01) ==
LOC: ER 16:40
DX: L02.31 Cutaneous abscess of buttock (principal); Z88.5 Allergy status to narcotic agent
CPT/HCPCS: 99283; 36415; 87070; 87205; 85025; 81025; 81001; 10060; A6266

== ENCOUNTER 2018-11-22 14:06 | Emergency (ER) | payer SELFPAY ==
[2018-11-22] MEDS ORDERED: PENICILLIN V POTASSIUM 500 MG TABLET PO ONE (15:02)
[2018-11-22] MEDS ORDERED: HYDROCODONE/ACETAMINOPHEN 5-325 MG (6 TAB/ER DISP) PO PRN (15:03)
--- NOTE | 2018-11-22 15:04 | ER Document Report ---
HPI - HPI Time Seen by Provider: 11/22/18 14:36 Pain Level: 5 Notes: Patient is an otherwise healthy 28-year-old female who presents to the emergency department with chief complaint of dental pain. Patient reports this is been ongoing for approximately 2 days. She reports that she believes her wisdom tooth needs to be removed. She is complaining of pain to the lower left area of her mouth. Denies any fevers or swelling. States she has tried taking ibuprofen with no relief. - CONSTITUTIONAL Constitutional: DENIES: Fever, Chills - REPRODUCTIVE Reproductive: DENIES: : Past Medical History - General Information source: Patient - Social History Smoking Status: Never Smoker Chew tobacco use (# tins/day): No Frequency of alcohol use: None Drug Abuse: None Family History: Arthritis, CAD, DM, Hyperlipidemia, Hypertension, Thyroid Disfunction Patient has suicidal ideation: No Patient has homicidal ideation: No Renal/ Medical History: Reports: Hx Ovarian Cysts. Denies: Hx Peritoneal Dialysis GI Medical History: Reports: Hx Crohn's Disease, Hx Colonoscopy, Hx Endoscopy Psychiatric Medical History: Denies: Hx Depression Past Surgical History: Reports: Hx Abdominal Surgery - Peritoneal abscess and fistula removed JACKIE chain inserted and removed, Hx Gynecologic Surgery - pelvic abscesses x2, Other - Abscess drainage and debridement - Immunizations Hx Diphtheria, Pertussis, Tetanus Vaccination: No Hx Pneumococcal Vaccination: 08/09/17 Vertical Provider Document - CONSTITUTIONAL Notes: PHYSICAL EXAMINATION: GENERAL: Well-appearing, well-nourished and in no acute distress. HEAD: Atraumatic, normocephalic. EYES: Pupils equal round extraocular movements intact, conjunctiva are normal. ENT: Nares patent, erythema noted around tooth #17, no drainable abscess identified. NECK: Normal range of motion LUNGS: No respiratory distress Musculoskeletal: Normal range of motion NEUROLOGICAL: Normal speech, normal gait. PSYCH: Normal mood, normal affect. SKIN: Warm, Dry, normal turgor, no rashes or lesions noted. - INFECTION CONTROL TRAVEL OUTSIDE OF THE [place] IN LAST 30 DAYS: No Course - Re-evaluation Re-evalutation: Examination is consistent with dental infection. Patient does appear to be in acute pain in her wisdom tooth does appear to be infected at tooth #[address]. [address] patient on penicillin and will prescribe her a Vicodin dispense pack. I did explain to the patient that she should be taking ibuprofen 600 mg every 6 hours and that we will not be able to place her on Vicodin again. Patient verbalized understanding and is in agreement with this plan. - Vital Signs Vital signs: Temp Pulse Resp BP Pulse Ox 98.6 F 86 16 128/72 H 98 11/22/18 14:20 11/22/18 14:20 11/22/18 14:20 11/22/18 14:20 11/22/18 14:20 Discharge - Discharge Clinical Impression: Dental infection Condition: Stable Disposition: HOME, SELF-CARE Additional Instructions: TOOTHACHE: Your pain is due to dental decay. The tooth must be repaired in order for you to feel better. You will, therefore, be referred to a dentist. We do not have dentists on the staff at [facility]. Severe swelling or drainage around a tooth usually means a dental abscess. This also requires evaluation and treatment by the dentist, but antibiotics may be prescribed while awaiting dental treatment. You should be rechecked immediately if you develop major swelling of the face, increasing pain, a lump in the jaw or gums, headache, difficulty swallowing, or fever. ORAL NARCOTIC MEDICATION: You have been given a prescription for pain control. This medication is a narcotic. It's best taken with food, as nausea can result if taken on an empty stomach. Don't operate machinery or drive within six hours of taking this medication. Do not combine this medicine with alcohol, or with any medication which can cause sedation (such as cold tablets or sleeping pills) unless you get permission from the physician. Narcotics tend to cause constipation. If possible, drink plenty of fluids and eat a diet high in fiber and fruits. Please be aware that prescription narcotics also have the potential for abuse. People become addicted to these medications because of the general sense of wellbeing that they induce. This feeling along with a significant reduction in tension, anxiety, and aggression provides a stimulating seductive quality to these drugs. Once your pain is under control, we encourage you to discard your unused narcotics. PENICILLIN V K: You have been given a prescription for Penicillin VK. Your physician has determined that this is the best antibiotic for your condition. Pen VK can be taken with meals, however more of the antibiotic gets into the bloodstream if it's taken on an empty stomach. Penicillin usually has no side effects. However, allergy to penicillins is common. If you have had an allergic reaction to any drug of the penicillin family, you should never take any other penicillin. Notify your doctor at once if you develop hives, itching, swelling, faintness, or shortness of breath. FOLLOW-UP CARE: You have been referred for follow-up care to the dentists listed below. Call the dentists office for an appointment as you were instructed or within the next two days. If you experience worsening or a significant change in your symptoms, notify the physician immediately or return to the Emergency Department at any time for re-evaluation. [facility] [address] Prescriptions: Penicillin V Potassium [Penicillin Vk 500 mg Tablet] 500 mg PO BID #20 tablet
[2018-11-22 15:29] VITALS: BP 112/63
== END 2018-11-22 15:31 | disposition home or self-care (01) ==
LOC: ER 14:06
DX: K04.7 Periapical abscess without sinus (principal); K08.89 Other specified disorders of teeth and supporting structures; Z79.899 Other long term (current) drug therapy
CPT/HCPCS: 99282

== ENCOUNTER 2019-02-16 16:38 | Emergency (ER) | payer SELFPAY ==
[2019-02-16 17:15] LABS: APPEARANCE,URINE SLIGHTLY-CLOUDY; BILIRUBIN,URINE NEGATIVE (NEGATIVE); COLOR,URINE YELLOW; GLUCOSE, URINE NEGATIVE (NEGATIVE); KETONES,URINE NEGATIVE (NEGATIVE); LEUKOCYTE ESTERASE,URINE LARGE (NEGATIVE); NITRITE,URINE NEGATIVE (NEGATIVE); PROTEIN,URINE NEGATIVE (NEGATIVE)
--- NOTE | 2019-02-16 18:22 | ER Document Report ---
ED Medical Screen (RME) - General Chief Complaint: Nausea Stated Complaint: NAUSEA/DIZZY/ABDOMINAL PAIN/LIGHT HEADED Time Seen by Provider: 02/16/19 18:16 Mode of Arrival: Ambulatory Information source: Patient Notes: Presents emergency department with complaints of epigastric abdominal pain. Reports history of Crohn's. When she has a flare that she usually has generalized abdominal pain. She also reports some nausea denies vomiting. Reports last bowel movement was diarrhea but that is usual for her since she has Crohn's. She reports when she got in the shower this morning she felt a little lightheaded but feels better now. She also feels very jittery. No fever no vomiting. Epigastric area tender to palpation I have greeted and performed a rapid initial assessment of this patient. A comprehensive ED assessment and evaluation of the patient, analysis of test results and completion of the medical decision making process will be conducted by additional ED providers. Dictation of this chart was performed using voice recognition software; therefore, there may be some unintended grammatical errors. TRAVEL OUTSIDE OF THE [place] IN LAST 30 DAYS: No - Related Data Allergies/Adverse Reactions: morphine [Morphine] Allergy (Mild, Verified 02/16/19 18:20) Hives infliximab [From Remicade] Allergy (Verified 02/16/19 18:20) pineapple Adverse Reaction (Verified 02/16/19 18:20) Past Medical History - Social History Chew tobacco use (# tins/day): No Frequency of alcohol use: None Drug Abuse: None Renal/ Medical History: Reports: Hx Ovarian Cysts. Denies: Hx Peritoneal Dialysis GI Medical History: Reports: Hx Crohn's Disease, Hx Colonoscopy, Hx Endoscopy Psychiatric Medical History: Denies: Hx Depression Past Surgical History: Reports: Hx Abdominal Surgery - Peritoneal abscess and fistula removed JACKIE chain inserted and removed, Hx Gynecologic Surgery - pelvic abscesses x2, Other - Abscess drainage and debridement - Immunizations Hx Diphtheria, Pertussis, Tetanus Vaccination: No History of Influenza Vaccine for 08/2017 - 01/2018 Season: Yes Influenza Administration Date for 08/2017 - 01/2018 Season: 08/09/17 Physical Exam - Vital signs Vitals: Temp Pulse Resp BP Pulse Ox 97.7 F 104 H 18 136/78 H 96 02/16/19 16:58 02/16/19 16:58 02/16/19 16:58 02/16/19 16:58 02/16/19 16:58 Course - Vital Signs Vital signs: Temp Pulse Resp BP Pulse Ox 97.7 F 104 H 18 136/78 H 96 02/16/19 16:58 02/16/19 16:58 02/16/19 16:58 02/16/19 16:58 02/16/19 16:58 - Laboratory Laboratory results interpreted by me: 02/16/19 16:41 Urine Blood SMALL H Urine Urobilinogen 2.0 H Ur Leukocyte Esterase LARGE H
[2019-02-16 18:57] LABS: ABSOLUTE LYMPHOCYTES (AUTO) 1.3 10^3/uL (0.5-4.7); ABSOLUTE MONOCYTES (AUTO) 0.5 10^3/uL (0.1-1.4); ABSOLUTE NEUT (AUTO) 4.5 10^3/uL (1.7-8.2); BASOPHILS % (AUTO) 0.3 % (0-2); EOSINOPHILS % (AUTO) 0.7 % (0-6); HEMATOCRIT 38.8 % (36.0-47.0); HEMOGLOBIN 12.5 g/dL (12.0-15.5); LYMPHOCYTES % (AUTO) 20.6 % (13-45); MEAN CORPUSCULAR HEMOGLOBIN 24.2 pg (27.0-33.4); MEAN CORPUSCULAR HGB CONC 32.3 g/dL (32.0-36.0); MEAN CORPUSCULAR VOLUME 75 fl (80-97); MONOCYTES % (AUTO) 7.3 % (3-13); PLATELET COUNT 220 10^3/uL (150-450); RED BLOOD COUNT 5.17 10^6/uL (3.72-5.28); RED CELL DISTRIBUTION WIDTH 15.7 % (11.5-14.0); SEGMENTED NEUTROPHILS % (AUTO) 71.1 % (42-78); TOTAL CELLS COUNTED % (AUTO) 100 %; WHITE BLOOD COUNT 6.3 10^3/uL (4.0-10.5)
[2019-02-16 19:13] LABS: ALANINE AMINOTRANSFERASE 15 U/L (9-52); ALBUMIN 4.1 g/dL (3.5-5.0); ALKALINE PHOSPHATASE 94 U/L (38-126); ANION GAP 10 (5-19); ASPARTATE AMINO TRANSFERASE 12 U/L (14-36); BILIRUBIN,DIRECT 0.3 mg/dL (0.0-0.4); BILIRUBIN,TOTAL 0.5 mg/dL (0.2-1.3); BLOOD UREA NITROGEN 14 mg/dL (7-20); CALCIUM 9.6 mg/dL (8.4-10.2); CARBON DIOXIDE 22 mmol/L (22-30); CHLORIDE 106 mmol/L (98-107); GLUCOSE 79 mg/dL (75-110); LIPASE 151.6 U/L (23-300); POTASSIUM 4.5 mmol/L (3.6-5.0); SODIUM 137.9 mmol/L (137-145); TOTAL PROTEIN 8.5 g/dL (6.3-8.2)
[2019-02-16] MEDS ORDERED: CEPHALEXIN 500 MG CAPSULE PO ONE (22:33)
[2019-02-16] MEDS ORDERED: HYDROCODONE/ACETAMINOPHEN 5-325 MG TABLET PO ONE (22:34)
[2019-02-16] MEDS ORDERED: FLUCONAZOLE 100 MG TABLET PO ONE (22:34)
--- NOTE | 2019-02-16 22:41 | ER Document Report ---
ED General - General Chief Complaint: Nausea Stated Complaint: NAUSEA/DIZZY/ABDOMINAL PAIN/LIGHT HEADED Time Seen by Provider: 02/16/19 18:16 Mode of Arrival: Ambulatory Information source: Patient, Parent Notes: Patient is a 28-year-old female who was accompanied to the emergency room by her mother. Patient has asked the nurse to have me speak to her privately without the mother being present. Patient has a complaint of a past medical history of having Crohn's. Patient states that she woke up this morning feeling nauseated and dizzy and having generous a little bit. She also was lightheaded. She had some stomach pains last night but she thought it might be related to her history of the Crohn's disease. Patient is also considering that she might possibly be . She denies any vaginal discharge she denies any other problems at this time. TRAVEL OUTSIDE OF THE [place] IN LAST 30 DAYS: No - HPI Onset: This morning Onset/Duration: Sudden Quality of pain: Achy, Burning, Pressure Severity: Moderate Pain Level: 3 Associated symptoms: Nausea, Vomiting Exacerbated by: Denies Relieved by: Denies Similar symptoms previously: No Recently seen / treated by doctor: No - Related Data Allergies/Adverse Reactions: morphine [Morphine] Allergy (Mild, Verified 02/16/19 18:20) Hives infliximab [From Remicade] Allergy (Verified 02/16/19 18:20) pineapple Adverse Reaction (Verified 02/16/19 18:20) Past Medical History - General Information source: Patient - Social History Smoking Status: Never Smoker Chew tobacco use (# tins/day): No Frequency of alcohol use: None Drug Abuse: None Lives with: Family Family History: Reviewed & Not Pertinent, Arthritis, CAD, DM, Hyperlipidemia, Hypertension, Thyroid Disfunction Patient has suicidal ideation: No Patient has homicidal ideation: No Renal/ Medical History: Reports: Hx Ovarian Cysts. Denies: Hx Peritoneal Dialysis GI Medical History: Reports: Hx Crohn's Disease, Hx Colonoscopy, Hx Endoscopy Psychiatric Medical History: Denies: Hx Depression Past Surgical History: Reports: Hx Abdominal Surgery - Peritoneal abscess and fistula removed JACKIE chain inserted and removed, Hx Gynecologic Surgery - pelvic abscesses x2, Other - Abscess drainage and debridement - Immunizations Hx Diphtheria, Pertussis, Tetanus Vaccination: No Hx Pneumococcal Vaccination: 08/09/17 Review of Systems - Review of Systems Constitutional: No symptoms reported EENT: No symptoms reported Cardiovascular: No symptoms reported Respiratory: No symptoms reported Gastrointestinal: See HPI, Abdominal pain, Diarrhea, Nausea, Vomiting, Poor appetite Genitourinary: See HPI, Dysuria, Urgency, Retention Female Genitourinary: No symptoms reported Musculoskeletal: No symptoms reported Skin: No symptoms reported Hematologic/Lymphatic: No symptoms reported Neurological/Psychological: No symptoms reported -: Yes All other systems reviewed and negative Physical Exam - Vital signs Vitals: Temp Pulse Resp BP Pulse Ox 97.7 F 104 H 18 136/78 H 96 02/16/19 16:58 02/16/19 16:58 02/16/19 16:58 02/16/19 16:58 02/16/19 16:58 Interpretation: Hypertensive, Tachycardic - Notes Notes: PHYSICAL EXAMINATION: GENERAL: Well-appearing, well-nourished and in no acute distress. Uncomfortable appearing HEAD: Atraumatic, normocephalic. EYES: Pupils equal round and reactive to light, extraocular movements intact, conjunctiva are normal. ENT: Nares patent, oropharynx clear without exudates. Moist mucous membranes. NECK: Normal range of motion, supple without lymphadenopathy LUNGS: Breath sounds clear to auscultation bilaterally and equal. No wheezes rales or rhonchi. HEART: Regular rate and rhythm without murmurs ABDOMEN: Soft, nontender, nondistended abdomen. No guarding, no rebound. No masses appreciated. Patient displays mild tenderness to palpation suprapubically. The stomach and abdomen show mild diffuse tenderness nonspecific mostly to percussion. There is nothing specific about pains discomfort or pain. Female : deferred Musculoskeletal: Normal range of motion, no pitting or edema. No cyanosis. PSYCH: Normal mood, normal affect. SKIN: Warm, Dry, normal turgor, no rashes or lesions noted. Course - Re-evaluation Re-evalutation: 02/16/19 22:40 Patient's course of stay was pretty benign. She turns out to have a large leukocytes in her urine some touch of blood therefore patient has urinary tract infection. We will put her on Keflex and Diflucan and Pyridium and this should take care of her back and pain and discomfort as well. - Vital Signs Vital signs: Temp Pulse Resp BP Pulse Ox 97.7 F 104 H 18 136/78 H 96 02/16/19 16:58 02/16/19 16:58 02/16/19 16:58 02/16/19 16:58 02/16/19 16:58 - Laboratory Result Diagrams: 02/16/19 18:37 02/16/19 18:37 Laboratory results interpreted by me: 02/16/19 02/16/19 02/16/19 16:41 18:37 18:37 MCV 75 L MCH 24.2 L RDW 15.7 H AST 12 L Total Protein 8.5 H Urine Blood SMALL H Urine Urobilinogen 2.0 H Ur Leukocyte Esterase LARGE H Discharge - Discharge Clinical Impression: Urinary tract infection Qualifiers: Urinary tract infection type: site unspecified Hematuria presence: with hematuria Qualified Code(s): N39.0 - Urinary tract infection, site not specified; R31.9 - Hematuria, unspecified Condition: Good Disposition: HOME, SELF-CARE Instructions: Cephalexin ([facility]), Urinary Anesthetic Agent ([facility]), Urinary Tract Infection ([facility]) Additional Instructions: Home and rest. Medication as prescribed. Increase your fluids especially water avoid sodas and anything with a lot of sugar in it for the next 48-72 hours. Should you have any concerns or problems return to ER for recheck. Especially if you spike a fever or have increasing pain or discomfort. Prescriptions: Cephalexin Monohydrate [Keflex 500 mg Capsule] 500 mg PO BID 7 Days #14 capsule Phenazopyridine HCl [Pyridium 200 mg Tablet] 200 mg PO TID #12 tablet Forms: Elevated Blood Pressure
[2019-02-16 23:57] VITALS: BP 132/73
== END 2019-02-16 23:57 | disposition home or self-care (01) ==
LOC: ER 16:38
DX: N39.0 Urinary tract infection, site not specified (principal); R31.9 Hematuria, unspecified; R11.2 Nausea with vomiting, unspecified; R19.7 Diarrhea, unspecified; R63.0 Anorexia; R42 Dizziness and giddiness; Z87.19 Personal history of other diseases of the digestive system; Z88.5 Allergy status to narcotic agent; Z88.8 Allergy status to other drugs, medicaments and biological substances; Z87.42 Personal history of other diseases of the female genital tract
CPT/HCPCS: 36415; 80053; 81001; 81025; 83690; 84703; 85025; 99283

== ENCOUNTER 2019-05-06 09:40 | Emergency (ER) | payer SELFPAY ==
[2019-05-06] MEDS ORDERED: LIDOCAINE 2% VISCOUS SOLN 20 ML UDCUP PO ONE (10:50)
--- NOTE | 2019-05-06 10:53 | ER Document Report ---
HPI - HPI Time Seen by Provider: 05/06/19 10:29 Pain Level: 5 Notes: Patient presents emergency department chief complaint of dental pain to the left lower side near tooth #17 and 18. Patient reports pain has been ongoing for approximately 2 days. Patient denies any fevers or drainage from the area. Patient reports that the pain is a throbbing pain and is continuous. Patient has not tried taking any medications for this. - NEURO Neurology: REPORTS: Headache - REPRODUCTIVE Reproductive: REPORTS: :. DENIES: Postmenopausal, Abnormal bleeding / discharge Past Medical History - General Information source: Patient - Social History Smoking Status: Never Smoker Family History: Reviewed & Not Pertinent, Arthritis, CAD, DM, Hyperlipidemia, Hypertension, Thyroid Disfunction Patient has suicidal ideation: No Patient has homicidal ideation: No Renal/ Medical History: Reports: Hx Ovarian Cysts. Denies: Hx Peritoneal Dialysis GI Medical History: Reports: Hx Crohn's Disease, Hx Colonoscopy, Hx Endoscopy Psychiatric Medical History: Denies: Hx Depression Past Surgical History: Reports: Hx Abdominal Surgery - Peritoneal abscess and fistula removed JACKIE chain inserted and removed, Hx Gynecologic Surgery - pelvic abscesses x2, Other - Abscess drainage and debridement - Immunizations Hx Diphtheria, Pertussis, Tetanus Vaccination: No Hx Pneumococcal Vaccination: 08/09/17 Vertical Provider Document - CONSTITUTIONAL Notes: PHYSICAL EXAMINATION: GENERAL: Well-appearing, well-nourished and in no acute distress. HEAD: Atraumatic, normocephalic. EYES: Pupils equal round extraocular movements intact, conjunctiva are normal. ENT: Nares patent, erythema noted around teeth #17 and 18, no drainable abscess identified. Poor dentition throughout. NECK: Normal range of motion LUNGS: No respiratory distress Musculoskeletal: Normal range of motion NEUROLOGICAL: Normal speech, normal gait. PSYCH: Normal mood, normal affect. SKIN: Warm, Dry, normal turgor, no rashes or lesions noted. - INFECTION CONTROL TRAVEL OUTSIDE OF THE [place] IN LAST 30 DAYS: No Course - Re-evaluation Re-evalutation: Patient's physical examination is consistent with dental infection, no drainable abscess identified at this time. Patient will be started on appropriate an tibiotics and encouraged to follow-up with dental. [facility]. - Vital Signs Vital signs: Temp Pulse Resp BP Pulse Ox 98.6 F 88 16 136/74 H 98 05/06/19 09:52 05/06/19 09:52 05/06/19 09:52 05/06/19 09:52 05/06/19 09:52 Discharge - Discharge Clinical Impression: Dental infection Condition: Stable Disposition: HOME, SELF-CARE Additional Instructions: You have been seen for dental pain. It is very important that you follow-up with a dentist for definitive care and to take antibiotics as prescribed. Please return if you develop fever greater than 101, swelling in your face, vomiting, difficulty breathing or swallowing, or any other symptoms that are concerning to you. For pain you should take Tylenol as needed as it is safe in . Prescriptions: Penicillin V Potassium [Penicillin Vk 500 mg Tablet] 500 mg PO BID #20 tablet Forms: Special Work Note Referrals: VLAD RUTHERFORD MD [Primary Care Provider] - Follow up as needed
[2019-05-06 11:06] VITALS: BP 145/95
== END 2019-05-06 11:08 | disposition home or self-care (01) ==
LOC: ER 09:40
DX: K04.7 Periapical abscess without sinus (principal); R51 Headache
CPT/HCPCS: 99282; J3490

== ENCOUNTER 2019-05-27 14:46 | Emergency (ER) | payer MEDICAID ==
[2019-05-27 14:58] VITALS: BP 126/84
[2019-05-27] MEDS ORDERED: PENICILLIN V POTASSIUM 500 MG TABLET PO ONE (15:25)
[2019-05-27] MEDS ORDERED: HYDROCODONE/ACETAMINOPHEN 5-325 MG TABLET PO ONE (15:25)
--- NOTE | 2019-05-27 15:26 | ER Document Report ---
HPI - HPI Time Seen by Provider: 05/27/19 14:56 Pain Level: 2 Notes: Patient is a 29-year-old female presented to the emergency department chief complaint of right upper dental pain. Patient reports dental pain started approximately 2 days ago. She states that she has been unable to get into a dentist. She denies any fevers. - CONSTITUTIONAL Constitutional: DENIES: Fever, Chills - EENT EENT: DENIES: Sore Throat, Ear Pain, Eye problems - NEURO Neurology: DENIES: Headache, Weakness, Vision blurred, Dizzinesss / Vertigo - CARDIOVASCULAR Cardiovascular: DENIES: Chest pain - RESPIRATORY Respiratory: DENIES: Trouble Breathing, Coughing - GASTROINTESTINAL Gastrointestinal: DENIES: Abdominal Pain, Black / Bloody Stools - URINARY Urinary: DENIES: Dysuria, Urgency, Frequency - REPRODUCTIVE Reproductive: REPORTS: : - MUSCULOSKELETAL Musculoskeletal: DENIES: Extremity pain Past Medical History - General Information source: Patient - Social History Smoking Status: Never Smoker Chew tobacco use (# tins/day): No Frequency of alcohol use: None Drug Abuse: None Family History: Reviewed & Not Pertinent, Arthritis, CAD, DM, Hyperlipidemia, Hypertension, Thyroid Disfunction Patient has suicidal ideation: No Patient has homicidal ideation: No Renal/ Medical History: Reports: Hx Ovarian Cysts. Denies: Hx Peritoneal Dialysis GI Medical History: Reports: Hx Crohn's Disease, Hx Colonoscopy, Hx Endoscopy Psychiatric Medical History: Denies: Hx Depression Past Surgical History: Reports: Hx Abdominal Surgery - Peritoneal abscess and fistula removed JACKIE chain inserted and removed, Hx Gynecologic Surgery - pelvic abscesses x2, Other - Abscess drainage and debridement - Immunizations Hx Diphtheria, Pertussis, Tetanus Vaccination: No Hx Pneumococcal Vaccination: 08/09/17 Vertical Provider Document - CONSTITUTIONAL Notes: PHYSICAL EXAMINATION: GENERAL: Well-appearing, well-nourished and in no acute distress. HEAD: Atraumatic, normocephalic. EYES: Pupils equal round extraocular movements intact, conjunctiva are normal. ENT: Nares patent, no evidence of dental abscess, erythema noted to right upper gumline. NECK: Normal range of motion LUNGS: No respiratory distress Musculoskeletal: Normal range of motion NEUROLOGICAL: Normal speech, normal gait. PSYCH: Normal mood, normal affect. SKIN: Warm, Dry, normal turgor, no rashes or lesions noted. - INFECTION CONTROL TRAVEL OUTSIDE OF THE [place] IN LAST 30 DAYS: No Course - Re-evaluation Re-evalutation: Presentation is most consistent with likely an infected tooth. Airway is patent. Vitals within normal limits. Patient is able swallow without any difficulty. There is no significant facial swelling. No evidence of Sebastian angina, apical abscess, or airway obstruction. Patient will be started on antibiotics. I've instructed to follow-up with dentistry as earliest ability for definitive management. At this time will discharge with return precautions and follow-up recommendations. Verbal discharge instructions given a the bedside and opportunity for questions given. Medication warnings reviewed. Patient is in agreement with this plan and has verbalized understanding of return precautions and the need for primary care follow-up in the next 24-72 hours. - Vital Signs Vital signs: Temp Pulse Resp BP Pulse Ox 98.2 F 80 20 126/84 H 100 05/27/19 14:57 05/27/19 14:57 05/27/19 14:57 05/27/19 14:57 05/27/19 14:57 Discharge - Discharge Clinical Impression: Pain, dental Condition: Stable Disposition: HOME, SELF-CARE Additional Instructions: You have been seen for dental pain. It is very important that you follow-up with a dentist for definitive care. Please return if you develop fever greater than 101, swelling in your face, vomiting, difficulty breathing or swallowing, or any other symptoms that are concerning to you. For pain you should take ibuprofen 800 mg every 8 hours as needed. Prescriptions: Penicillin V Potassium [Penicillin Vk 500 mg Tablet] 500 mg PO BID #20 tablet Referrals: ZULLY OTTO MD [Primary Care Provider] - Follow up as needed
== END 2019-05-27 15:51 | disposition home or self-care (01) ==
LOC: ER 14:46
DX: K08.89 Other specified disorders of teeth and supporting structures (principal)
CPT/HCPCS: 99282; J3490

== ENCOUNTER 2019-10-12 15:34 | Emergency (ER) | payer MEDICAID ==
--- NOTE | 2019-10-12 16:10 | ER Document Report ---
ED Medical Screen (RME) - General Chief Complaint: Abscess Stated Complaint: ABSCESS/BUTTOCK AREA Time Seen by Provider: 10/12/19 16:02 Primary Care Provider: ZULLY OTTO MD [Primary Care Provider] - Follow up as needed Mode of Arrival: Ambulatory Information source: Patient Notes: 29-year-old female with history of Crohn's and pilonidal cyst presents today wit h complaints of abscess to her gluteal fold. Reports it feels like it is swollen down to her vaginal area. Patient reports she is had multiple pilonidal abscesses. She reports she called the surgeon and has an appointment with him next Thursday but she is in so much pain she could not wait. Denies fever vomiting diarrhea. I have greeted and performed a rapid initial assessment of this patient. A comprehensive ED assessment and evaluation of the patient, analysis of test results and completion of the medical decision making process will be conducted by additional ED providers. Dictation of this chart was performed using voice recognition software; therefore, there may be some unintended grammatical errors. TRAVEL OUTSIDE OF THE [place] IN LAST 30 DAYS: No - Related Data Allergies/Adverse Reactions: morphine [Morphine] Allergy (Mild, Verified 10/12/19 16:07) Hives infliximab [From Remicade] Allergy (Verified 10/12/19 16:07) pineapple Adverse Reaction (Verified 10/12/19 16:07) Past Medical History Renal/ Medical History: Reports: Hx Ovarian Cysts. Denies: Hx Peritoneal Dialysis GI Medical History: Reports: Hx Crohn's Disease, Hx Colonoscopy, Hx Endoscopy Psychiatric Medical History: Denies: Hx Depression Past Surgical History: Reports: Hx Abdominal Surgery - Peritoneal abscess and fistula removed JACKIE chain inserted and removed, Hx Gynecologic Surgery - pelvic abscesses x2, Other - Abscess drainage and debridement - Immunizations Hx Diphtheria, Pertussis, Tetanus Vaccination: No Physical Exam - Vital signs Vitals: Temp Pulse Resp BP Pulse Ox 98.3 F 109 H 20 145/106 H 97 10/12/19 15:40 10/12/19 15:40 10/12/19 15:40 10/12/19 15:40 10/12/19 15:40 Course - Vital Signs Vital signs: Temp Pulse Resp BP Pulse Ox 98.3 F 109 H 20 145/106 H 97 10/12/19 15:40 10/12/19 15:40 10/12/19 15:40 10/12/19 15:40 10/12/19 15:40 Doctor's Discharge - Discharge Referrals: ZULLY OTTO MD [Primary Care Provider] - Follow up as needed
[2019-10-12 17:37] LABS: ABSOLUTE EOSINOPHILS # (AUTO) 0.1 10^3/uL (0.0-0.6); ABSOLUTE LYMPHOCYTES (AUTO) 1.4 10^3/uL (0.5-4.7); ABSOLUTE MONOCYTES (AUTO) 0.5 10^3/uL (0.1-1.4); ABSOLUTE NEUT (AUTO) 5.4 10^3/uL (1.7-8.2); BASOPHILS % (AUTO) 0.5 % (0-2); HEMATOCRIT 34.2 % (36.0-47.0); LYMPHOCYTES % (AUTO) 18.5 % (13-45); MEAN CORPUSCULAR HEMOGLOBIN 22.7 pg (27.0-33.4); MEAN CORPUSCULAR HGB CONC 32.3 g/dL (32.0-36.0); MEAN CORPUSCULAR VOLUME 70 fl (80-97); MONOCYTES % (AUTO) 7.3 % (3-13); RED BLOOD COUNT 4.85 10^6/uL (3.72-5.28); RED CELL DISTRIBUTION WIDTH 17.7 % (11.5-14.0); SEGMENTED NEUTROPHILS % (AUTO) 72.7 % (42-78); TOTAL CELLS COUNTED % (AUTO) 100 %; WHITE BLOOD COUNT 7.5 10^3/uL (4.0-10.5)
[2019-10-12 17:59] LABS: ALBUMIN 4.1 g/dL (3.5-5.0); ALKALINE PHOSPHATASE 93 U/L (38-126); ASPARTATE AMINO TRANSFERASE 13 U/L (14-36); CARBON DIOXIDE 25 mmol/L (22-30); TOTAL PROTEIN 8.6 g/dL (6.3-8.2)
[2019-10-12 18:01] LABS: PLATELET COUNT 209 10^3/uL (150-450)
[2019-10-12 18:11] LABS: ANION GAP 10 (5-19); BILIRUBIN,TOTAL 0.7 mg/dL (0.2-1.3); BLOOD UREA NITROGEN 8 mg/dL (7-20); CHLORIDE 105 mmol/L (98-107); GLUCOSE 76 mg/dL (75-110)
[2019-10-12 19:29] LABS: APPEARANCE,URINE CLEAR; BILIRUBIN,URINE NEGATIVE (NEGATIVE); COLOR,URINE AMBER; GLUCOSE, URINE NEGATIVE (NEGATIVE); KETONES,URINE NEGATIVE (NEGATIVE); LEUKOCYTE ESTERASE,URINE NEGATIVE (NEGATIVE); NITRITE,URINE POSITIVE (NEGATIVE); PROTEIN,URINE 30 mg/dL (NEGATIVE); URINE SPECIFIC GRAVITY 1.016
[2019-10-12] MEDS ORDERED: SULFAMETHOXAZOLE/TRIMETHOPRIM 800-160 MG TABLET PO ONE (20:44)
[2019-10-12] MEDS ORDERED: CEPHALEXIN 500 MG CAPSULE PO ONE (20:44)
[2019-10-12] MEDS ORDERED: OXYCODONE-ACETAMINOPHEN 5-325 MG TABLET PO ONE (20:44)
[2019-10-12] MEDS ORDERED: PROMETHAZINE HCL 25 MG TABLET PO ONE (20:45)
--- NOTE | 2019-10-12 20:51 | ER Document Report ---
ED Skin Rash/Insect Bite/Abscs - General Chief Complaint: Abscess Stated Complaint: ABSCESS/BUTTOCK AREA Time Seen by Provider: 10/12/19 16:02 Primary Care Provider: ZULLY OTTO MD [ACTIVE STAFF] - Follow up as needed Mode of Arrival: Ambulatory Notes: Patient is a 29-year-old female that comes emergency department for chief complaint of a abscess on the left buttock area. She states this actually opened and started draining, she states this is been going on intermittently for months now, she states she has a surgical clinic follow-up on Thursday but the discomfort was worsening and she states she called them and she was told to come in. She denies fever/chills, nausea/vomiting, diabetes, or any other complaints. Past medical history includes Crohn's, denies medical history ot herwise. Patient does tell me that she has been having urinary frequency and painful urination but she denies abdominal pain, flank pain. TRAVEL OUTSIDE OF THE [place] IN LAST 30 DAYS: No - Related Data Allergies/Adverse Reactions: morphine [Morphine] Allergy (Mild, Verified 10/12/19 16:07) Hives infliximab [From Remicade] Allergy (Verified 10/12/19 16:07) pineapple Adverse Reaction (Verified 10/12/19 16:07) Home Medications: Stellara Past Medical History - General Information source: Patient - Social History Smoking Status: Never Smoker Chew tobacco use (# tins/day): No Frequency of alcohol use: None Drug Abuse: None Lives with: Family Family History: Reviewed & Not Pertinent, Arthritis, CAD, DM, Hyperlipidemia, Hypertension, Thyroid Disfunction Patient has suicidal ideation: No Patient has homicidal ideation: No Renal/ Medical History: Reports: Hx Ovarian Cysts. Denies: Hx Peritoneal Dialysis GI Medical History: Reports: Hx Crohn's Disease, Hx Colonoscopy, Hx Endoscopy Psychiatric Medical History: Denies: Hx Depression Past Surgical History: Reports: Hx Abdominal Surgery - Peritoneal abscess and f istula removed JACKIE chain inserted and removed, Hx Gynecologic Surgery - pelvic abscesses x2, Other - Abscess drainage and debridement - Immunizations Hx Diphtheria, Pertussis, Tetanus Vaccination: No Hx Pneumococcal Vaccination: 08/09/17 Review of Systems - Review of Systems Constitutional: No symptoms reported EENT: No symptoms reported Cardiovascular: No symptoms reported Respiratory: No symptoms reported Gastrointestinal: No symptoms reported Genitourinary: No symptoms reported Female Genitourinary: No symptoms reported Musculoskeletal: No symptoms reported Skin: See HPI Hematologic/Lymphatic: No symptoms reported Neurological/Psychological: No symptoms reported Physical Exam - Vital signs Vitals: Temp Pulse Resp BP Pulse Ox 98.3 F 109 H 20 145/106 H 97 10/12/19 15:40 10/12/19 15:40 10/12/19 15:40 10/12/19 15:40 10/12/19 15:40 - Notes Notes: GENERAL: Alert, interacts well. No acute distress. HEAD: Normocephalic, atraumatic. EYES: Pupils equal, round, and reactive to light. Extraocular movements intact. ENT: Oral mucosa moist, tongue midline. Oropharynx unremarkable. Airway patent. LUNGS: Clear to auscultation bilaterally, no wheezes, rales, or rhonchi. No respiratory distress. HEART: Regular rate and rhythm. No murmur ABDOMEN: Soft, non-tender. Non-distended. Bowel sounds present in all 4 quadrants. GENITOURINARY: Deferred EXTREMITIES: Moves all 4 extremities spontaneously. No edema, normal radial and dorsalis pedis pulses bilaterally. No cyanosis. BACK: no cervical, thoracic, lumbar midline tenderness. No saddle anesthesia, normal distal neurovascular exam. Moves all extremities in full range of motion. NEUROLOGICAL: Alert and oriented x3. Normal speech. Cranial nerves II through XII grossly intact. PSYCH: Normal affect, normal mood. SKIN: There is an erythematous mildly indurated area over the left mid buttock slightly within the gluteal cleft. This is currently draining. There is no abnormal area noted in the pilonidal location, there is no perianal abscess noted, unremarkable otherwise. Exam performed with Tigist ACUÑA at bedside. Course - Re-evaluation Re-evalutation: Patient does have an abscess in the left mid gluteal cleft area. I do not see a pilonidal cyst abscess or perianal abscess. She does not have a fever. Lab work-up nonspecific but does confirm UTI which patient is symptomatic from. I recommended opening of the draining area more for the patient to help improvement, patient declined, patient refuses I&D and requests antibiotics and close follow-up with surgical clinic with return precautions. She does have close follow-up already established, she was placed on antibiotics and given return precautions. Patient states understanding and agreement. - Vital Signs Vital signs: Temp Pulse Resp BP Pulse Ox 98.7 F 88 16 155/76 H 100 10/12/19 21:04 10/12/19 21:04 10/12/19 21:04 10/12/19 21:04 10/12/19 21:04 - Laboratory Result Diagrams: 10/12/19 17:03 10/12/19 17:03 Laboratory results interpreted by me: 10/12/19 10/12/19 10/12/19 17:03 17:03 18:55 Hgb 11.0 L Hct 34.2 L MCV 70 L MCH 22.7 L RDW 17.7 H AST 13 L Total Protein 8.6 H Urine Protein 30 H Urine Blood MODERATE H Urine Nitrite POSITIVE H Urine Urobilinogen 4.0 H Discharge - Discharge Clinical Impression: Left buttock abscess Urinary tract infection Qualifiers: Urinary tract infection type: site unspecified Hematuria presence: without hi turia Qualified Code(s): N39.0 - Urinary tract infection, site not specified Condition: Stable Disposition: HOME, SELF-CARE Additional Instructions: Take the antibiotics as prescribed. You have both a draining abscess and a urinary tract infection. Follow-up closely in the clinic as discussed. Return if you worsen including fever/chills, spreading redness or pain, vomiting, or any other concerning or worsening symptoms. Prescriptions: Oxycodone HCl/Acetaminophen [Percocet 5-325 mg Tablet] 1 - 2 tab PO Q6HP PRN #10 tablet PRN Reason: Sulfamethoxazole/Trimethoprim [Bactrim Ds Tablet] 1 each PO BID #14 tablet Cephalexin Monohydrate [Keflex 500 mg Capsule] 500 mg PO QID #28 capsule Forms: Elevated Blood Pressure Referrals: ZULLY OTTO MD [ACTIVE STAFF] - Follow up as needed
[2019-10-12 21:05] VITALS: BP 155/76
== END 2019-10-12 21:03 | disposition home or self-care (01) ==
LOC: ER 15:34
DX: L02.31 Cutaneous abscess of buttock (principal); N39.0 Urinary tract infection, site not specified; K50.90 Crohn's disease, unspecified, without complications; Z79.899 Other long term (current) drug therapy; Z88.6 Allergy status to analgesic agent; Z88.5 Allergy status to narcotic agent; Z88.8 Allergy status to other drugs, medicaments and biological substances
CPT/HCPCS: 99283; 36415; 85025; 81025; 80053; 81001; J3490 ×2

== ENCOUNTER 2019-11-15 13:01 | Day surgery (SDC) | payer MEDICAID ==
[~2019-11-15 13:01] MED LIST: ACETAMINOPHEN 325 MG TABLET PO PRN; IBUPROFEN 800 MG in NORMAL SALINE 250 ML IV PRN; METRONIDAZOLE 500 MG/NS RTU 500 MG/100 ML RTUPB IV ONE; METRONIDAZOLE 500 MG/NS RTU 500 MG/100 ML RTUPB IV PRN
[2019-11-15] MEDS ORDERED: ACETAMINOPHEN 325 MG TABLET ONE (13:33)
[2019-11-15] MEDS ORDERED: SCOPOLAMINE HYDROBROMIDE 1.5 MG PATCH.TD72 ONE (17:44)
[2019-11-15] MEDS ORDERED: FAMOTIDINE INJ/PF 20 MG/2 ML SDV IV ONE ×2 (17:45→18:15)
[2019-11-15] MEDS ORDERED: SCOPOLAMINE HYDROBROMIDE 1.5 MG PATCH.TD72 TD ONE (18:15)
[2019-11-15] MEDS ORDERED: RINGERS SOLUTION,LACTATED 1,000 ML IV ONE (18:15)
[2019-11-15] MEDS ORDERED: FENTANYL CITRATE INJ/PF 100 MCG/2 ML AMPUL IV PRN ×3 (19:31)
[2019-11-15] MEDS ORDERED: DIPHENHYDRAMINE HCL 50 MG/ML VIAL IV PRN (19:31)
[2019-11-15] MEDS ORDERED: PROMETHAZINE HCL INJ 25 MG/1 ML VIAL IV PRN ×2 (19:31)
[2019-11-15] MEDS ORDERED: ONDANSETRON HCL INJ/PF 4 MG/2 ML SDV IV PRN (19:31)
[2019-11-15] MEDS ORDERED: LIDOCAINE 2% JELLY 5 ML TUBE ONE (19:35)
[2019-11-15] MEDS ORDERED: BACITRACIN ZINC OINTMENT 15 GM ONE (19:35)
[2019-11-15] MEDS ORDERED: BUPIVACAINE INJ/PF LIPOSOME/PF 266 MG/20 ML SDV ONE (19:36)
[2019-11-15] MEDS ORDERED: MIDAZOLAM 2 MG/2 ML INJ ONE (19:58)
[2019-11-15] MEDS ORDERED: LIDOCAINE 2% INJ-PF (20 MG/ML) 10 ML AMPUL ONE (19:58)
[2019-11-15] MEDS ORDERED: FENTANYL CITRATE INJ/PF 100 MCG/2 ML AMPUL ONE (19:58)
[2019-11-15] MEDS ORDERED: PROPOFOL INJ 200 MG/20 ML VIAL IV ONE (19:59)
[2019-11-16] MEDS ORDERED: HYDROCODONE/ACETAMINOPHEN 10-325 MG TABLET PO PRN (02:59)
[2019-11-16] MEDS ORDERED: IBUPROFEN SUSP 100 MG/5 ML ORAL SYRINGE PO ONE (03:15)
[2019-11-16] MEDS ORDERED: IBUPROFEN 800 MG TABLET PO SCH (08:00)
[2019-11-16 09:00] VITALS: BP 146/83
[2019-11-16] MEDS ORDERED: IBUPROFEN SUSP 100 MG/5 ML ORAL SYRINGE PO SCH (12:00)
--- NOTE | 2019-11-18 07:36 | Discharge Summary ---
Discharge Summary (SDC) - Discharge Final Diagnosis: 1. perianal Crohn's disease. 2. Associated perirectal abscess. 3. Anorectal stricture Date of Surgery: 11/15/19 Discharge Date: 11/15/19 Condition: Stable Forms: Discharge POC-Adult Treatment or Instructions: Discharge home. Diet as tolerated. Activity: Nonstrenuous. Follow-up with me in 7 to 10 days. [place] 10/325 mg p.o. every 6 hours PRN for pain. Warm sits baths twice daily and after bowel movements. 5% lidocaine ointment to rectum 3 times daily. Remove packing tomorrow. Keep dry dressing in place, and change daily. Referrals: JHONY CAZARES MD [ACTIVE STAFF] - (Follow up with Dr. Cazares in 7-10 days. ) Discharge Diet: As Tolerated Respiratory Treatments at Home: Deep Breathing/Coughing, Incentive Spirometer Discharge Activity: Balance Activity w/Rest Home Care Assistance: None Needed Report the Following to Your Physician Immediately: Increase in Pain, Fever over 101 Degrees, Unusual Bleeding, Redness, Swelling, Increased Soreness, IV Site Infection Signs, Urinary Infection Signs
--- NOTE | 2019-11-21 07:47 | Operative Report ---
Nonrecallable Operative Report DATE OF SURGERY: 11/15/19 PREOPERATIVE DIAGNOSIS: 1. Perianal Crohn's disease. 2. Anorectal fistula. POSTOPERATIVE DIAGNOSIS: 1. Perianal Crohn's disease. 2. Anorectal fistula. 3. Large perirectal abscess. 4. Anorectal stricture. OPERATION: 1. Rectal exam under anesthesia. 2. Dilation of anal stricture at the anorectal ring. 3. Incision and drainage of a perirectal abscess. 4. Placement of draining seton through the remaining fistula tract. SURGEON: JHONY ANG ANESTHESIA: Spinal TISSUE REMOVED OR ALTERED: None COMPLICATIONS: None apparent ESTIMATED BLOOD LOSS: Minimal PROCEDURE: Drains/implants: Red vessel loop seton. Procedure in detail: After informed consent was obtained, the patient was brought to the operating room and laid in the prone jackknife position. The anus and rectum were prepped and draped in a normal sterile fashion. The anus and rectum were examined. The patient has active perianal Crohn's disease. There is intense inflammation in the perianal area. There was a tight stricture at the anorectal ring. Digital dilation of the anal rectal ring was performed, serially. After dilation, a Hill-Barksdale retractor was able to be inserted into the anus. The external fistula tract was at approximately 10:00 (with 12:00 being directly posterior). Next, hydrogen peroxide was injected into the fistula tract. The internal opening was identified at approximately 12:00, 1 cm proximal to the anorectal ring. A lacrimal probe was used to delineate the fistula tract. The external end of the fistula tract was laid open using a 15 blade scalpel. There was a large amount of purulent material within the fistula tract. A large cavity was identified in the ischio-rectal fossa, containing purulent material. This was opened widely, and irrigated. Electrocautery was used to cauterize a large amount of granulation tissue within the abscess cavity. At this time, the patient's anorectal ring was too inflamed for the performing of an endorectal advancement flap. In light of this (as well as the large amount of purulent material encountered), a draining seton was placed. A red vessel loop was placed through the fistula tract, and sutured to itself. A dressing at this time was placed, and the procedure was concluded. All sponge, instrument, and needle counts were correct x2. Condition: Stable.
== END 2019-11-16 07:00 | disposition home or self-care (01) ==
LOC: OROUT 13:01 → 2N 23:13 → OROUT 11-16 07:00
PROVIDERS: ATTEND Surgery
DX: K50.913 Crohn's disease, unspecified, with fistula (principal); K60.5 Anorectal fistula; K61.1 Rectal abscess; K62.4 Stenosis of anus and rectum; E66.9 Obesity, unspecified; Z68.42 Body mass index [BMI] 45.0-49.9, adult; Z88.5 Allergy status to narcotic agent; Z88.8 Allergy status to other drugs, medicaments and biological substances; D64.9 Anemia, unspecified; Z79.891 Long term (current) use of opiate analgesic
CPT/HCPCS: 36415; 84703; 00902; 46020; 45905; J3490 ×5; J2250; J7050; J2704; S0028; J1741; 902; C9290; J3010